=== PATIENT | female | born 1940 | race Caucasian/White ===

== ENCOUNTER 2018-04-15 16:54 | Inpatient (IN) | payer OTHER ==
[2018-04-15] MEDS ORDERED: ACETAMINOPHEN 500 MG TABLET (FP) PO ONE (18:40)
--- NOTE | 2018-04-15 18:41 | PDOC ---
History of Present Illness - General Chief Complaint: Wound Stated Complaint: WOUND Time Seen by Provider: 04/15/18 17:42 History Source: Patient Exam Limitations: No Limitations - History of Present Illness Initial Comments: 04/15/18 18:34 Patient came to emergency department with complaints of concerns about recurrent swelling to her left leg. Has suffered from what seems to be venous stasis ulcers and peripheral vascular disease that seems chronic and has been cared for by Dr. Zaman in the past. States was concerned because she noted some "insects/worms" to the wounds that someone told her may be maggots. Patient cleans the wounds herself with soap and water but states her left leg has progressively worsen swelling. Denies fever, denies purulent drainage, states is primarily a serous fluid, and is not exquisitely painful although is aching. States that it swells more becomes more painful. Has taken no medication for relief of same. Has not discussed this with Dr. Zaman and she has not seen him for same since December. Severity: Yes: moderate, severe Location: reports: extremities (RIGHT LOWER EXT) Associated Symptoms: reports: blisters, change in skin texture, edema. denies: fever Past History - Travel Traveled outside of the country in the last 30 days: No Close contact w/someone who was outside of country & ill: No - Past Medical History Allergies/Adverse Reactions: Allergies Allergy/AdvReac Type Severity Reaction Status Date / Time Penicillins Allergy Unknown Verified 04/16/18 01:15 Home Medications: Ambulatory Orders Fluticasone/Salmeterol [Advair 250-50 Diskus] 1 puff IH DAILY 04/15/18 Levothyroxine [Synthroid -] 88 mcg PO DAILY 04/15/18 Losartan Potassium 25 mg PO DAILY 04/15/18 Metoprolol Succinate 25 mg PO DAILY 04/15/18 Potassium Chloride 20 meq PO DAILY 04/15/18 Famotidine [Pepcid] 20 mg PO 04/17/18 Cancer: Yes (breast) COPD: No Hypercholesterolemia: No - Suicide/Smoking/Psychosocial Hx Smoking History: Never smoked Review of Systems - Review of Systems Able to Perform ROS?: Yes Is the patient limited Barbadian proficient: Yes Constitutional: Yes: Symptoms Reported, See HPI, Malaise. No: Fever HEENTM: Yes: See HPI. No: Symptoms Reported Respiratory: Yes: See HPI, Shortness of Breath. No: Symptoms reported, Cough Musculoskeletal: Yes: Symptoms Reported, Joint Pain, Joint Swelling, Muscle Weakness Integumentary: Yes: Symptoms Reported, See HPI, Erythema, Lesions, Other (WITH WEEPING ) All Other Systems: Reviewed and Negative *Physical Exam - Vital Signs Last Vital Signs Temp Pulse Resp BP Pulse Ox 98.9 F 112 H 20 143/91 99 04/15/18 17:05 04/15/18 17:05 04/15/18 17:05 04/15/18 17:05 04/15/18 17:05 - Physical Exam General Appearance: Yes: Nourished, Appropriately Dressed, Apparent Distress, Moderate Distress HEENT: positive: EOMI, RICO, Normal ENT Inspection, Normal Voice, TMs Normal, Pharynx Normal Neck: positive: Supple. negative: Tender Respiratory/Chest: positive: Lungs Clear, Normal Breath Sounds Cardiovascular: positive: Regular Rhythm Musculoskeletal: positive: Decreased Range of Motion. negative: Normal Inspection, CVA Tenderness Extremity: positive: Other (left lower extremity from above the knee with severe edema, erythema, and ulcerations with weeping serous drainage and multiple areas . Pulses are palpable but capillary refill is sluggish. Left calf is twice the size his right calf however both sides have peripheral edema and venous stasis changes.). negative: Normal Capillary Refill, Normal Inspection, Normal Range of Motion Integumentary: positive: Erythema. 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 We will obtain labs and prepare for admission, obtain US of bilateral extremities. *DC/Admit/Observation/Transfer Diagnosis at time of Disposition: Cellulitis, UTI (urinary tract infection) - Discharge Dispostion Condition at time of disposition: Stable - Referrals - Patient Instructions - Post Discharge Activity
[2018-04-15 18:57] LABS: BASO % 0.6 % (0-2.0); EOS % 1.4 % (0-4.5); HEMATOCRIT 34.4 % (32.4-45.2); HEMOGLOBIN 11.3 GM/dL (10.7-15.3); LYMPH % 26.2 % (8-40); MCH 30.6 pg (25.7-33.7); MEAN CELL VOLUME 92.8 fl (80-96); MEAN PLT VOLUME 6.5 fl (7.5-11.1); MONO % 11.4 % (3.8-10.2); NEUT % 60.4 % (42.8-82.8); PLATELET COUNT 344 K/MM3 (134-434); RDW 14.4 % (11.6-15.6); WHITE BLOOD COUNT 4.6 K/mm3 (4.0-10.0)
[2018-04-15] MEDS ORDERED: CLINDAMYCIN 600MG PREMIX IVPB 600 MG/50 ML BAG IVPB ONE ×2 (18:57→18:58)
[2018-04-15] MEDS ORDERED: ACETAMINOPHEN INJECTION 100 ML IVPB ONE (18:58)
[2018-04-15 19:19] LABS: ALBUMIN 3.2 g/dl (3.4-5.0); ANION GAP 9 (8-16); BLOOD UREA NITROGEN 5 mg/dL (7-18); CALCIUM 8.8 mg/dL (8.5-10.1); CHLORIDE 101 mmol/L (98-107); CO2 28 mmol/L (21-32); CREATININE 0.7 mg/dL (0.55-1.02); GLUCOSE,RANDOM 92 mg/dL (74-106); SGPT/ALT 22 U/L (12-78); SODIUM 138 mmol/L (136-145)
[2018-04-15 19:21] LABS: ALK PHOS 87 U/L (45-117); BILIRUBIN,TOTAL 0.5 mg/dL (0.2-1.0); POTASSIUM 3.9 mmol/L (3.5-5.1); SGOT/AST 38 U/L (15-37); TOT PROT 6.7 g/dl (6.4-8.2)
[2018-04-15] MEDS ORDERED: ACETAMINOPHEN 325 MG TABLET (FP) ONE (19:21)
--- NOTE | 2018-04-15 19:22 | PDOC ---
*Physical Exam - Vital Signs Last Vital Signs Temp Pulse Resp BP Pulse Ox 98.9 F 112 H 20 143/91 99 04/15/18 17:05 04/15/18 17:05 04/15/18 17:05 04/15/18 17:05 04/15/18 17:05 ED Treatment Course - LABORATORY CBC & Chemistry Diagram: 04/15/18 21:10 04/15/18 21:10 - ADDITIONAL ORDERS Additional order review: 04/15/18 16:44 RBC 3.70 MCV 92.8 MCHC 33.0 RDW 14.4 MPV 6.5 L Neutrophils % 60.4 Lymphocytes % 26.2 Monocytes % 11.4 H Eosinophils % 1.4 Basophils % 0.6 Medical Decision Making - Medical Decision Making 04/15/18 19:21 Patient was endorsed by GALA Maciel to follow labs, ultrasound and admit the patient for cellulitis. Laboratory Tests 04/15/18 04/15/18 04/15/18 16:44 16:44 16:44 WBC 4.6 Hgb 11.3 Hct 34.4 Plt Count 344 Sodium 138 Potassium 3.9 Chloride 101 Carbon Dioxide 28 Anion Gap 9 BUN 5 L Creatinine 0.7 Lactic Acid 1.0 B-Natriuretic Peptide Urine Color Urine Appearance Urine pH Ur Specific [place] Urine Protein Urine Glucose (UA) Urine Ketones Urine Blood Urine Nitrite Urine Bilirubin Urine Urobilinogen Ur Leukocyte Esterase Urine WBC (Auto) Urine RBC (Auto) Ur Epithelial Cells Urine Bacteria Hyaline Casts Urine Mucus 04/15/18 04/15/18 18:55 20:00 WBC Hgb Hct Plt Count Sodium Potassium Chloride Carbon Dioxide Anion Gap BUN Creatinine Lactic Acid B-Natriuretic Peptide 110.09 Urine Color Ltyellow Urine Appearance Slcloudy Urine pH 8.0 Ur Specific [place] 1.009 Urine Protein Negative Urine Glucose (UA) Negative Urine Ketones Trace H Urine Blood 1+ H Urine Nitrite Negative Urine Bilirubin Negative Urine Urobilinogen Negative Ur Leukocyte Esterase 3+ H Urine WBC (Auto) 67 Urine RBC (Auto) 6 Ur Epithelial Cells Rare Urine Bacteria Rare Hyaline Casts 5 Urine Mucus Rare Noted to have a UTI given Macrobid. Patient was already given clindamycin however will not cover the urine 04/15/18 23:47 Patient Full Name: SADI DAVIS Patient Accession No: [id number] Patient : [id number] Reason for Exam: pvd with stasis ulcers Referring Physician: AUBREY SANZ Patient Name: SUSAN AVITIA THIS IS A PRELIMINARY REPORT FROM [facility] DATE OF SERVICE: 2018-04-15 22:14:18 IMAGES: 72 EXAM: DUPLEX VASCULAR US-2 LEGS HISTORY: Stasis ulcers COMPARISON: None. FINDINGS: Negative for right or left lower extremity deep venous thrombosis. THIS DOCUMENT HAS BEEN ELECTRONICALLY SIGNED Kota Perez MD 04/15/2018 23:21 MC Aquino Please call [facility] [phone] ([phone]) with questions. INTERPRETING RADIOLOGIST: Kota Perez MD Electronically Signed: Apr 15, 2018 11:22PM EDT 04/15/18 23:49 CXR neg *DC/Admit/Observation/Transfer Diagnosis at time of Disposition: Cellulitis Qualifiers: Site of cellulitis: extremity Site of cellulitis of extremity: lower extremity Laterality: left Qualified Code(s): L03.116 - Cellulitis of left lower limb UTI (urinary tract infection) Qualifiers: Urinary tract infection type: site unspecified Hematuria presence: without hematuria Qualified Code(s): N39.0 - Urinary tract infection, site not specified - Discharge Dispostion Condition at time of disposition: Stable Decision to Admit order: Yes - Referrals Referrals: Mack Almeida MD [Primary Care Provider] - - Patient Instructions - Post Discharge Activity
[2018-04-15 20:08] LABS: URINE APPEARANCE SLCLOUDY; URINE BILIRUBIN NEGATIVE (<2.0 mg/dL); URINE BLOOD 1+ (NEGATIVE); URINE COLOR LTYELLOW; URINE GLUCOSE (UA) NEGATIVE (NEGATIVE); URINE KETONE TRACE (NEGATIVE); URINE NITRITE NEGATIVE (NEGATIVE); URINE PROTEIN NEGATIVE (NEGATIVE); URINE UROBILINOGEN NEGATIVE mg/dL (0.2-1.0)
[2018-04-15 20:11] LABS: URINE LEUK ESTERASE 3+ (NEGATIVE)
[2018-04-15 20:13] LABS: EPI CELLS RARE /HPF (FEW); URINE BACTERIA RARE /hpf (NONE SEEN); URINE HYALINE CAST 5 /lpf; URINE MUCUS RARE
[2018-04-15 21:28] LABS: BASO % 0.5 % (0-2.0); EOS % 1.1 % (0-4.5); HEMATOCRIT 34.6 % (32.4-45.2); HEMOGLOBIN 11.5 GM/dL (10.7-15.3); LYMPH % 20.3 % (8-40); MCH 30.7 pg (25.7-33.7); MCHC 33.3 g/dl (32.0-36.0); MEAN CELL VOLUME 92.4 fl (80-96); MEAN PLT VOLUME 6.2 fl (7.5-11.1); MONO % 10.8 % (3.8-10.2); NEUT % 67.3 % (42.8-82.8); PLATELET COUNT 346 K/MM3 (134-434); RBC 3.74 M/mm3 (3.60-5.2); RDW 13.7 % (11.6-15.6); WHITE BLOOD COUNT 4.9 K/mm3 (4.0-10.0)
[2018-04-15 22:08] LABS: ALBUMIN 3.2 g/dl (3.4-5.0); ALK PHOS 89 U/L (45-117); ANION GAP 8 (8-16); BILIRUBIN,TOTAL 0.5 mg/dL (0.2-1.0); BLOOD UREA NITROGEN 5 mg/dL (7-18); CALCIUM 8.6 mg/dL (8.5-10.1); CHLORIDE 103 mmol/L (98-107); CO2 28 mmol/L (21-32); CREATININE 0.7 mg/dL (0.55-1.02); GLUCOSE,RANDOM 97 mg/dL (74-106); POTASSIUM 3.5 mmol/L (3.5-5.1); SGOT/AST 30 U/L (15-37); SGPT/ALT 22 U/L (12-78); SODIUM 139 mmol/L (136-145); TOT PROT 6.7 g/dl (6.4-8.2)
[2018-04-15] MEDS ORDERED: NITROFURANTOIN MACROCRYSTAL 50 MG CAPSULE (FP) PO SCH (22:30)
[2018-04-15] MEDS ORDERED: NITROFURANTOIN MACROCRYSTAL 50 MG CAPSULE (FP) PO ONE (22:30)
[2018-04-16] MEDS ORDERED: ACETAMINOPHEN 325 MG TABLET (FP) PO PRN (00:40)
--- NOTE | 2018-04-16 00:43 | HP ---
CHIEF COMPLAINT: L Leg pain PCP: Dr. Almeida HISTORY OF PRESENT ILLNESS: 78yo F with memory deficits, recurrent cellulitis with unknown bacteria, HTN , Asthma, and hypothyroidism presents to the hospital with pain in her L lower extremity. Pt reports previously having cellulitis before, however she does not remember which antibiotics and bacteria she had. Pt reports seeing Dr. Almeida due to the venous stasis changes on her legs alongside of what seems to be peripheral vascular disease. Pt reports cleaning her leg scaling with tap water and soap and has been doing this regularly for a while. Pt endorses that this visit her L leg is markedly larger than her R and noticed her pant leg becoming more taut day-to-day. She denies fever/chills, diarrhea, constipation, abdominal pain, chest pain/discomfort, palpitations. Of note: Pt endorses polyuria with almost being incontinent due to the frequency at which she urinated. Denies any overt dysuria. ER course was notable for: (1) Cleocin 10mg/kg IV x1 (2) UA with Leuk est 3+, WBC 67; given Macrobid x1 (3) PAST MEDICAL HISTORY: HTN Asthma Hypothyroidism PAST SURGICAL HISTORY: Social History: Smoking: Never Alcohol: None Drugs: None Family History: Allergies No Known Allergies Allergy (Verified 04/15/18 17:10) HOME MEDICATIONS: Home Medications Medication Instructions Recorded Fluticasone/Salmeterol [Advair 1 puff IH DAILY 04/15/18 250-50 Diskus] Levothyroxine [Synthroid -] 25 mcg PO DAILY 04/15/18 Losartan Potassium 25 mg PO DAILY 04/15/18 Metoprolol Succinate 25 mg PO DAILY 04/15/18 Potassium Chloride 20 meq PO DAILY 04/15/18 REVIEW OF SYSTEMS CONSTITUTIONAL: Absent: fever, chills, diaphoresis, generalized weakness, malaise, loss of appetite, weight change HEENT: Absent: rhinorrhea, nasal congestion, throat pain, throat swelling, difficulty swallowing, mouth swelling, ear pain, eye pain, visual changes CARDIOVASCULAR: Absent: chest pain, syncope, palpitations, irregular heart rate, lightheadedness , peripheral edema RESPIRATORY: Absent: cough, shortness of breath, dyspnea with exertion, orthopnea, wheezing, stridor, hemoptysis GASTROINTESTINAL: Absent: abdominal pain, abdominal distension, nausea, vomiting, diarrhea, constipation, melena, hematochezia GENITOURINARY: Absent: dysuria, frequency, urgency, hesitancy, hematuria, flank pain, genital pain MUSCULOSKELETAL: Absent: myalgia, arthralgia, joint swelling, back pain, neck pain SKIN: Absent: rash, itching, pallor HEMATOLOGIC/IMMUNOLOGIC: Absent: easy bleeding, easy bruising, lymphadenopathy, frequent infections ENDOCRINE: Absent: unexplained weight gain, unexplained weight loss, heat intolerance, cold intolerance NEUROLOGIC: Absent: headache, focal weakness or paresthesias, dizziness, unsteady gait, seizure, mental status changes, bladder or bowel incontinence PSYCHIATRIC: Absent: anxiety, depression, suicidal or homicidal ideation, hallucinations. PHYSICAL EXAMINATION Vital Signs - 24 hr 04/15/18 17:05 Temperature 98.9 F Pulse Rate 112 H Respiratory 20 Rate Blood Pressure 143/91 O2 Sat by Pulse 99 Oximetry (%) GENERAL: NAD, Awake, alert, and fully oriented, frail-appearing HEENT: EOMI, ADAM, dry MM NECK: No JVD LUNGS: CTA bilaterally. No wheezes, and no crackles. No accessory muscle use. HEART: Tachycardic with regular rhythm, normal S1 and S2 without murmur ABDOMEN: Soft, nontender, not distended, normoactive bowel sounds, no guarding, No hepatomegaly. no suprapubic tenderness MUSCULOSKELETAL: No CVA tenderness. EXTREMITIES: 2+ DP pulses, hot, L > R lower ext edema. No posterior calf tenderness PSYCHIATRIC: Pleasant. Cooperative. Good eye contact. Appropriate mood and affect. SKIN: L lower extremity hot and painful to palpation. no fluctuance appreciated underneath skin. Pt has posterior LLext open blistered area and two ulcerations on L lateral skin Laboratory Results - last 24 hr 04/15/18 04/15/18 04/15/18 16:44 16:44 16:44 WBC 4.6 RBC 3.70 Hgb 11.3 Hct 34.4 MCV 92.8 MCH 30.6 MCHC 33.0 RDW 14.4 Plt Count 344 MPV 6.5 L Neutrophils % 60.4 Lymphocytes % 26.2 Monocytes % 11.4 H Eosinophils % 1.4 Basophils % 0.6 Nucleated RBC % 0 Sodium 138 Potassium 3.9 Chloride 101 Carbon Dioxide 28 Anion Gap 9 BUN 5 L Creatinine 0.7 Creat Clearance w eGFR > 60 Random Glucose 92 Lactic Acid 1.0 Calcium 8.8 Total Bilirubin 0.5 AST 38 H ALT 22 Alkaline Phosphatase 87 B-Natriuretic Peptide Total Protein 6.7 Albumin 3.2 L Urine Color Urine Appearance Urine pH Ur Specific [place] Urine Protein Urine Glucose (UA) Urine Ketones Urine Blood Urine Nitrite Urine Bilirubin Urine Urobilinogen Ur Leukocyte Esterase Urine WBC (Auto) Urine RBC (Auto) Ur Epithelial Cells Urine Bacteria Hyaline Casts Urine Mucus 04/15/18 04/15/18 04/15/18 18:55 20:00 21:10 WBC RBC Hgb Hct MCV MCH MCHC RDW Plt Count MPV Neutrophils % Lymphocytes % Monocytes % Eosinophils % Basophils % Nucleated RBC % Sodium 139 Potassium 3.5 Chloride 103 Carbon Dioxide 28 Anion Gap 8 BUN 5 L Creatinine 0.7 Creat Clearance w eGFR > 60 Random Glucose 97 Lactic Acid Calcium 8.6 Total Bilirubin 0.5 AST 30 ALT 22 Alkaline Phosphatase 89 B-Natriuretic Peptide 110.09 Total Protein 6.7 Albumin 3.2 L Urine Color Ltyellow Urine Appearance Slcloudy Urine pH 8.0 Ur Specific [place] 1.009 Urine Protein Negative Urine Glucose (UA) Negative Urine Ketones Trace H Urine Blood 1+ H Urine Nitrite Negative Urine Bilirubin Negative Urine Urobilinogen Negative Ur Leukocyte Esterase 3+ H Urine WBC (Auto) 67 Urine RBC (Auto) 6 Ur Epithelial Cells Rare Urine Bacteria Rare Hyaline Casts 5 Urine Mucus Rare 04/15/18 04/15/18 21:10 21:10 WBC 4.9 RBC 3.74 Hgb 11.5 Hct 34.6 MCV 92.4 MCH 30.7 MCHC 33.3 RDW 13.7 Plt Count 346 MPV 6.2 L Neutrophils % 67.3 Lymphocytes % 20.3 D Monocytes % 10.8 H Eosinophils % 1.1 Basophils % 0.5 Nucleated RBC % 0 Sodium Potassium Chloride Carbon Dioxide Anion Gap BUN Creatinine Creat Clearance w eGFR Random Glucose Lactic Acid 1.0 Calcium Total Bilirubin AST ALT Alkaline Phosphatase B-Natriuretic Peptide Total Protein Albumin Urine Color Urine Appearance Urine pH Ur Specific [place] Urine Protein Urine Glucose (UA) Urine Ketones Urine Blood Urine Nitrite Urine Bilirubin Urine Urobilinogen Ur Leukocyte Esterase Urine WBC (Auto) Urine RBC (Auto) Ur Epithelial Cells Urine Bacteria Hyaline Casts Urine Mucus ASSESSMENT/PLAN: 1) LLE Cellulitis --Blood cultures pending; wound culture would most likely yield normal skin apryl vs. contaminent and may not be optimal with her supericial areas --Vancomycin 1g q12h --Aztreonam 2g IV q8hs --Penicillin allergic w/o known reaction --Vascular consulted --ID consulted --Doppler r/o DVT 2) UTI --symptomatic with polyuria --Would most likely be treated by cellulitis antibiotics --urine culture; UA noted 3) HTN --Continue home norvasc 5mg po and losartan 4) Hypothyroidism --Continued home synthroid FEN: Fluids: gentle hydration Electrolyte abnormalities: none Nutrition: sodium controlled diet PPX: DVT - Heparin SQ Dispo: Admit M/S Case discussed with Dr. Navarro Poe, DO - IM PGY-1 Visit type - Emergency Visit Emergency Visit: Yes ED Registration Date: 04/16/18 Care time: The patient presented to the Emergency Department on the above date and was hospitalized for further evaluation of their emergent condition. - New Patient This patient is new to me today: Yes Date on this admission: 04/16/18 - Critical Care Critical Care patient: No Hospitalist Screening - Colonoscopy Questionnaire Colonoscopy Questionnaire: Colonoscopy Questionnaire - Patient: 50 - 75 years old and never had a screening colonoscopy: Unknown History of colon or rectal polyps, or CA: Unknown History of IBD, Crohn's disease or UC: Unknown History of abdominal radiation therapy as a child: Unknown - Relative: 1 with colon or rectal CA, or polyps at age 60 or younger: Unknown Colon or rectal CA diagnosed at age 45 or younger: Unknown Multiple relatives with colon or rectal CA: Unknown - Outcome: Screening Result: Negative Screen
[2018-04-16] MEDS ORDERED: NITROFURANTOIN MACROCRYSTAL 50 MG CAPSULE (FP) ONE (02:40)
[2018-04-16] MEDS ORDERED: AZTREONAM 2 GM in DEXTROSE 5%-WATER 100 ML IVPB ONE (03:30)
[2018-04-16] MEDS ORDERED: CLINDAMYCIN 300 MG PREMIX IVPB 300 MG/50 ML BAG IVPB SCH (03:30)
[2018-04-16] MEDS ORDERED: VANCOMYCIN 1,000 MG in DEXTROSE 5%-WATER - 250 ML IVPB ONE ×2 (03:30→18:00)
[2018-04-16] MEDS ORDERED: VANCOMYCIN 1 GM PREMIX - 1 GM/200 ML BAG IVPB ONE (03:31)
[2018-04-16 04:42] VITALS: BMI 20.5
--- NOTE | 2018-04-16 05:12 | PN ---
Teaching Attending Note Name of Resident: Darwin Poe ATTENDING PHYSICIAN STATEMENT I saw and evaluated the patient. Chart, data reviewed. I reviewed the resident's note and discussed the case with the resident. I agree with the resident's findings and plan as documented. SUBJECTIVE: 78yo F with dementia HTN, asthma, PVD, and hypothyroidism presents c/o pain and redness in left lower extremity. Denied any history of trauma to leg. No fevers. Hx of chronic ulcers on LLE. History of celullitis on that leg. Pt follows with Dr. Almeida for PVD. Patient received clindamycin in ER. Unknown penicillin allergy. OBJECTIVE: Last Vital Signs Temp Pulse Resp BP Pulse Ox 98 F 84 18 138/79 97 04/16/18 04:35 04/16/18 04:35 04/16/18 04:35 04/16/18 04:35 04/16/18 04:46 general-nad, nontoxic appearing, frail heent-at, nc, moist oral mucosa cv-s1+s2+rrr chest -cta b/l abdomen-soft, nt, bs+ ext- left leg erythematous, warm to touch, superficial ulcers seen b/l venous stasis changes Abnormal Lab Results 04/15/18 04/15/18 04/15/18 16:44 16:44 20:00 MPV 6.5 L Monocytes % 11.4 H BUN 5 L AST 38 H Albumin 3.2 L Urine Ketones Trace H Urine Blood 1+ H Ur Leukocyte Esterase 3+ H 04/15/18 04/15/18 21:10 21:10 MPV 6.2 L Monocytes % 10.8 H BUN 5 L AST Albumin 3.2 L Urine Ketones Urine Blood Ur Leukocyte Esterase lower ext duplex u/s- neg for dvt b/l ASSESSMENT AND PLAN: #78yo woman with underlying PVD w/ left leg cellulitis. DVT was ruled out. Stable for admission to regular medical floor. -admit to med/surg -blood cultures x2 -vancomycin 1g IV q12hrs -aztreonam 2g IV q8hrs -vascular consult -ID consult -keep legs elevated heparin sc for dvt ppx
[2018-04-16] MEDS: HEPARIN NA (PORCINE) 5,000 UNITS/ML 1ML VIAL SQ SCH ×4 (06:09→22:03)
[2018-04-16] MEDS ORDERED: NITROFURANTOIN MACROCRYSTAL 50 MG CAPSULE (FP) PO SCH (10:00)
[2018-04-16] MEDS: LOSARTAN POTASSIUM 25 MG TABLET PO SCH (11:14)
[2018-04-16] MEDS: metoPROLOL SUCCINATE 25 MG TAB.SR.24H (FP) PO SCH (11:14)
[2018-04-16] MEDS: LEVOTHYROXINE NA 25 MCG TABLET (FP) PO SCH (13:09)
[2018-04-16] MEDS ORDERED: AZTREONAM 1 GM VIAL (RESTRICTED TO ID) IVPB ONE (14:02)
--- NOTE | 2018-04-16 14:09 | PN ---
Progress Note (short form) - Note Progress Note: Subjective: No fever or chills, has no pain in Extremities. no SOB . no CP Objective: Vital Signs: Last Vital Signs Temp Pulse Resp BP Pulse Ox 98.2 F 92 H 18 112/69 97 04/16/18 11:16 04/16/18 11:16 04/16/18 11:16 04/16/18 11:16 04/16/18 04:46 Laboratory Results - last 24 hr 04/15/18 04/15/18 04/15/18 16:44 16:44 16:44 WBC 4.6 RBC 3.70 Hgb 11.3 Hct 34.4 MCV 92.8 MCH 30.6 MCHC 33.0 RDW 14.4 Plt Count 344 MPV 6.5 L Neutrophils % 60.4 Lymphocytes % 26.2 Monocytes % 11.4 H Eosinophils % 1.4 Basophils % 0.6 Nucleated RBC % 0 Sodium 138 Potassium 3.9 Chloride 101 Carbon Dioxide 28 Anion Gap 9 BUN 5 L Creatinine 0.7 Creat Clearance w eGFR > 60 Random Glucose 92 Lactic Acid 1.0 Calcium 8.8 Total Bilirubin 0.5 AST 38 H ALT 22 Alkaline Phosphatase 87 B-Natriuretic Peptide Total Protein 6.7 Albumin 3.2 L Urine Color Urine Appearance Urine pH Ur Specific [place] Urine Protein Urine Glucose (UA) Urine Ketones Urine Blood Urine Nitrite Urine Bilirubin Urine Urobilinogen Ur Leukocyte Esterase Urine WBC (Auto) Urine RBC (Auto) Ur Epithelial Cells Urine Bacteria Hyaline Casts Urine Mucus 04/15/18 04/15/18 04/15/18 18:55 20:00 21:10 WBC RBC Hgb Hct MCV MCH MCHC RDW Plt Count MPV Neutrophils % Lymphocytes % Monocytes % Eosinophils % Basophils % Nucleated RBC % Sodium 139 Potassium 3.5 Chloride 103 Carbon Dioxide 28 Anion Gap 8 BUN 5 L Creatinine 0.7 Creat Clearance w eGFR > 60 Random Glucose 97 Lactic Acid Calcium 8.6 Total Bilirubin 0.5 AST 30 ALT 22 Alkaline Phosphatase 89 B-Natriuretic Peptide 110.09 Total Protein 6.7 Albumin 3.2 L Urine Color Ltyellow Urine Appearance Slcloudy Urine pH 8.0 Ur Specific [place] 1.009 Urine Protein Negative Urine Glucose (UA) Negative Urine Ketones Trace H Urine Blood 1+ H Urine Nitrite Negative Urine Bilirubin Negative Urine Urobilinogen Negative Ur Leukocyte Esterase 3+ H Urine WBC (Auto) 67 Urine RBC (Auto) 6 Ur Epithelial Cells Rare Urine Bacteria Rare Hyaline Casts 5 Urine Mucus Rare 04/15/18 04/15/18 21:10 21:10 WBC 4.9 RBC 3.74 Hgb 11.5 Hct 34.6 MCV 92.4 MCH 30.7 MCHC 33.3 RDW 13.7 Plt Count 346 MPV 6.2 L Neutrophils % 67.3 Lymphocytes % 20.3 D Monocytes % 10.8 H Eosinophils % 1.1 Basophils % 0.5 Nucleated RBC % 0 Sodium Potassium Chloride Carbon Dioxide Anion Gap BUN Creatinine Creat Clearance w eGFR Random Glucose Lactic Acid 1.0 Calcium Total Bilirubin AST ALT Alkaline Phosphatase B-Natriuretic Peptide Total Protein Albumin Urine Color Urine Appearance Urine pH Ur Specific [place] Urine Protein Urine Glucose (UA) Urine Ketones Urine Blood Urine Nitrite Urine Bilirubin Urine Urobilinogen Ur Leukocyte Esterase Urine WBC (Auto) Urine RBC (Auto) Ur Epithelial Cells Urine Bacteria Hyaline Casts Urine Mucus Physical Exam: NAD , MMM Cv : RRR Lungs: CATB ABd: soft, NT, ND , NLBS Ext: RLE with slight erythema , nl warmth and scaly thickened skin. L leg with erythema , increased warmth and edema. Ulcers and purulent drainage seen . DP 2 + b/l Assessment/Plan: 78 y/o lady with h/o Asthma, PVD, chronci ulcers, hypothyroidism and HTN, ? dementia , who presented with worsening LLE wound . 1-LLE purulent cellulites : - allergic to pCN - given vanco and aztreonam last night - cont same ABx pending ID eval - send wound cx - no systemic signs . 2+ DP pulses 2- pyuria : no urinary signs . unlikely UTI - was started on macrobid last night - dc microbid - any way on abx for celullulites 3- h/o HTN: cont losartan and toprol 5- Asthma : stable . - resume home advair 6- DVT PX HLOC PT eval Visit type - Emergency Visit Emergency Visit: Yes ED Registration Date: 04/16/18 Care time: The patient presented to the Emergency Department on the above date and was hospitalized for further evaluation of their emergent condition. - New Patient This patient is new to me today: Yes Date on this admission: 04/16/18 - Critical Care Critical Care patient: No
--- NOTE | 2018-04-16 15:48 | PN ---
Progress Note (short form) - Note Progress Note: ID Consult dictated Cellulitis L LE Chronic venous stasis dermatitis/ ulceration ?PCN allergy Pt denies Await c/s Empiric cefazolin Local wound care
[2018-04-16] MEDS ORDERED: AZTREONAM 2 GM in DEXTROSE 5%-WATER - 100 ML IVPB ONE (16:00)
[2018-04-16] MEDS ORDERED: ceFAZolin SODIUM 1 GM VIAL ONE (16:15)
[2018-04-16] MEDS ORDERED: DEXTROSE 5%-WATER - 50 ML IVPB ONE (16:15)
[2018-04-16] MEDS: CEFAZOLIN 1 GM in DEXTROSE 5%-WATER - 50 ML IVPB SCH ×2 (16:18→17:57)
--- NOTE | 2018-04-16 17:46 | CONS ---
DATE OF CONSULTATION: 04/16/2018 The patient is a 78-year-old female evaluated for cellulitis of the left lower extremity. She has a history of chronic venous stasis, dermatitis, and ulceration. She had been under the care of Dr. Almeida in the recent past. She now presents with worsening left lower extremity swelling, pain, and erythema. She noted some serous weepage from ulceration present along the lateral aspect of the left leg. She did not take any antibiotics prior to admission. She denies any fever or chills. The patient lives at home. She has had no recent hospitalizations. No history of MRSA. Past medical history positive for chronic venous stasis, dermatitis, hypertension, asthma, hypothyroidism. Allergies to PENICILLIN. Patient denies history of PENICILLIN allergy. MEDICATIONS: Advair, metoprolol, losartan, Synthroid. SOCIAL HISTORY: Lives at home. Nonsmoker. SYSTEMS REVIEW: Neurologic: No loss of consciousness, seizure activity, focal weakness. Cardiac: Negative chest pain or palpitations. Respiratory: Negative cough or sputum production. Gastrointestinal: Negative vomiting or diarrhea. Genitourinary: Negative for urinary tract infection. LABORATORY DATA: White count 4.9, hematocrit 34.6, platelet count 346. BUN 5, creatinine 0.7. Liver enzymes normal. Chest x-ray negative for acute infiltrate. Doppler exam: Negative DVT. PHYSICAL EXAMINATION: General: She is awake and alert, in no acute distress. Vital Signs: Temperature 97.9. Blood pressure 112/60. Pulse 82, regular. Respirations 20 per minute. Eyes: Sclerae anicteric. Heart Sounds: S1, S2. Lungs: Clear. Abdomen: Soft. Nontender. Extremities: Examination of the lower extremities: Bilateral lower extremity chronic venous stasis dermatitis. Examination of the left lower extremity, there is swelling of the leg from below the knee to the foot. It is erythematous and warm. There is a superficial ulceration present along the lateral aspect of the leg with some serous drainage. No foul odor. Right lower extremity with less swelling and erythema, chronic venous stasis changes. No ulcerations. IMPRESSION: 1. Cellulitis of the left lower extremity. 2. Chronic venous stasis dermatitis/ulceration. 3. Questionable PENICILLIN allergy. Await culture results. Patient denies history of PENICILLIN allergy. No recent hospitalizations or history of MRSA. Will give cefazolin 1 g IV piggyback every 8 hours in conjunction with local wound care, elevation, analgesics, vascular surgery evaluation. Will follow. Thank you for the kind referral. ELIZABETH TOLEDO M.D. TREVOR/[id number]
[2018-04-16] MEDS ORDERED: PT OWN MED DRAWER 7, Y5N ONE (20:31)
[2018-04-16] MEDS: FLUTICASONE/SALMETEROL 100 MCG/50 MCG DISKUS IH SCH (22:03)
--- NOTE | 2018-04-16 22:10 | EKG ---
Test Reason : Blood Pressure : / mmHG Vent. Rate : 097 BPM Atrial Rate : 097 BPM P-R Int : 140 ms QRS Dur : 078 ms QT Int : 370 ms P-R-T Axes : 067 046 043 degrees QTc Int : 469 ms NORMAL SINUS RHYTHM NORMAL ECG NO PREVIOUS ECGS AVAILABLE Confirmed by KAL LUNDBERG MD ([id number]) on 04/16/2018 10:09:37 PM Referred By: Confirmed By:KAL LUNDBERG MD
[2018-04-17] MEDS ORDERED: DEXTROSE 5%-WATER - 50 ML IVPB ONE ×3 (02:20→17:05)
[2018-04-17] MEDS ORDERED: ceFAZolin SODIUM 1 GM VIAL ONE ×3 (02:20→17:05)
[2018-04-17] MEDS: CEFAZOLIN 1 GM in DEXTROSE 5%-WATER - 50 ML IVPB SCH ×3 (02:33→17:15)
[2018-04-17] MEDS: HEPARIN NA (PORCINE) 5,000 UNITS/ML 1ML VIAL SQ SCH ×3 (05:52→21:13)
[2018-04-17] MEDS: LEVOTHYROXINE NA 25 MCG TABLET (FP) PO SCH (06:34)
--- NOTE | 2018-04-17 08:28 | PN ---
Progress Note, Physician Chief Complaint: ID Cefazolin day 1 In good spiritis - Current Medication List Current Medications: Active Medications Acetaminophen (Tylenol -) 650 mg PO Q6H PRN PRN Reason: FEVER Heparin Sodium (Porcine) (Heparin -) 5,000 unit SQ TID [facility] Last Admin: 04/17/18 05:52 Dose: 5,000 unit Cefazolin Sodium 1 gm/ (Dextrose) 50 mls @ 100 mls/hr IVPB Q8H-IV [facility] Last Admin: 04/17/18 02:33 Dose: 100 mls/hr Levothyroxine Sodium (Synthroid -) 25 mcg PO DAILY@0700 [facility] Last Admin: 04/17/18 06:34 Dose: 25 mcg Losartan Potassium (Cozaar -) 25 mg PO DAILY [facility] Last Admin: 04/16/18 11:14 Dose: 25 mg Metoprolol Succinate (Toprol Xl -) 25 mg PO DAILY [facility] Last Admin: 04/16/18 11:14 Dose: 25 mg Fluticasone/Salmeterol (Advair 100mcg/50mcg -) 1 puff IH BID [facility] Last Admin: 04/16/18 22:03 Dose: 1 puff - Objective Vital Signs: Vital Signs Temperature 98.1 F 04/17/18 05:00 Pulse Rate 80 04/17/18 05:00 Respiratory Rate 20 04/17/18 05:00 Blood Pressure 113/78 04/17/18 05:00 O2 Sat by Pulse Oximetry (%) 96 04/16/18 21:00 Extremities: Yes: Other (Marked swelling Left leg ulcerations) Labs: CBC, BMP 04/15/18 21:10 04/15/18 21:10 Assessment/Plan Microbiology 04/15/18 18:55 Blood - Peripheral Venous Blood Culture - Preliminary NO GROWTH OBTAINED AFTER 24 HOURS, INCUBATION TO CONTINUE FOR 4 DAYS. 04/15/18 16:44 Blood - Peripheral Venous Blood Culture - Preliminary NO GROWTH OBTAINED AFTER 24 HOURS, INCUBATION TO CONTINUE FOR 4 DAYS. Laboratory Tests 04/15/18 04/15/18 20:00 21:10 WBC 4.9 Hgb 11.5 Plt Count 346 Ur Leukocyte Esterase 3+ H Urine WBC (Auto) 67 Urine RBC (Auto) 6 Assessment Stasis dermatitis with cellulitis left Lower ext. Swelling superfical ulcers Incidental UTI Plan Continue Cefazolin as ordered Linda MANCERA
[2018-04-17] MEDS: FLUTICASONE/SALMETEROL 100 MCG/50 MCG DISKUS IH SCH ×2 (09:59→21:13)
[2018-04-17] MEDS: metoPROLOL SUCCINATE 25 MG TAB.SR.24H (FP) PO SCH (09:59)
[2018-04-17] MEDS: LOSARTAN POTASSIUM 25 MG TABLET PO SCH (09:59)
--- NOTE | 2018-04-17 13:59 | PN ---
Physical Exam: SUBJECTIVE: Patient seen and examined at bedside. States that she has increased pain in her LLE upon movement, otherwise without further complaint. Denies MCCARTY, fever, chills, SOB, chest pain, or changes in urinary function. OBJECTIVE: Vital Signs Period Temp Pulse Resp BP Sys/[place] Pulse Ox Last 24 Hr 97.6 F-99 F 73-82 18-22 112-127/54-78 96-96 GENERAL: The patient is resting comfortably in bed. awake, alert, and fully oriented, in no acute distress. HEAD: Normal with no signs of trauma. EYES: PERRL, extraocular movements intact, sclera anicteric, conjunctiva clear. ENT: Ears normal, nares patent, moist mucous membranes. NECK: Trachea midline, supple. LUNGS: Breath sounds equal, clear to auscultation bilaterally, no wheezes, no crackles, no accessory muscle use. HEART: Regular rate and rhythm, S1, S2 without murmur, rub or gallop. ABDOMEN: Soft, nontender, nondistended, normoactive bowel sounds, no guarding. EXTREMITIES: 2+ pt pulses. +RLE: erythema, 2+ pitting edema, chronic changes, scaling. +LLE: with multiple ulcerations laterally, posteriorly. foul smelling with serosanguineous drainage, surrounding erythema. anterior ulceration - with scabbing NEUROLOGICAL: Cranial nerves II through XII grossly intact. +decreased ROM LLE d /t pain PSYCH: Normal mood, normal affect. SKIN: Warm, dry, normal turgor Active Medications Generic Name Dose Route Start Last Admin Trade Name Freq PRN Reason Stop Dose Admin Acetaminophen 650 mg 04/16/18 00:40 Tylenol - PO Q6H PRN FEVER Heparin Sodium (Porcine) 5,000 unit 04/16/18 06:00 04/17/18 13:08 Heparin - SQ 5,000 unit TID IDA Administration Cefazolin Sodium 1 gm/ 50 mls @ 100 mls/hr 04/16/18 16:00 04/17/18 09:59 Dextrose IVPB 100 mls/hr Q8H-IV IDA Administration Levothyroxine Sodium 25 mcg 04/16/18 10:00 04/17/18 06:34 Synthroid - PO 25 mcg DAILY@0700 IDA Administration Losartan Potassium 25 mg 04/16/18 10:00 04/17/18 09:59 Cozaar - PO 25 mg DAILY IDA Administration Metoprolol Succinate 25 mg 04/16/18 10:00 04/17/18 09:59 Toprol Xl - PO 25 mg DAILY IDA Administration Fluticasone/Salmeterol 1 puff 04/16/18 22:00 04/17/18 09:59 Advair 100mcg/50mcg - IH 1 puff BID IDA Administration Microbiology 04/15/18 18:55 Blood - Peripheral Venous Blood Culture - Preliminary NO GROWTH OBTAINED AFTER 24 HOURS, INCUBATION TO CONTINUE FOR 4 DAYS. 04/15/18 16:44 Blood - Peripheral Venous Blood Culture - Preliminary NO GROWTH OBTAINED AFTER 24 HOURS, INCUBATION TO CONTINUE FOR 4 DAY 04/15/18 12:43 Urine - Urine Clean Catch Urine Culture - Preliminary Non Lactose Fermenting Gnb Imaging 04/15/18: B/L duplex: (-) DVT 04/15/18: CXR: no acute pathology ASSESSMENT/PLAN: 78 y/o F with h/o asthma, PVD, chronic ulcers, hypothyroidism, HTN, ?dementia, who presented to the ED with LLE wound. #LLE purulent cellulitis -without sepsis; afebrile, without tachycardia, or white count -LLE ulcerations - +drainage, surrounding erythema -penicillin allergic -initially was on vanc, aztreonam -has been changed to cefazolin 1 gm q8h - Today is Day 1 -F/u blood cx: (-) 24hrs -wound cx - to be sent, however may be (-) as pt already on abx #asymptomatic pyuria -though ucx with non lactose fermenting gram - bacilli, no need to tx as pt asymptomatic -will continue to monitor #h/o HTN-controlled -Continue losartan 25mg PO qd -toprol 25mg PO qd #hypothyroidism -continue synthroid 88mcg PO qd - has been verified with patient as correct dose #asthma -currently not in exacerbation -continue advair 100mcg/50mcg - 1 puff IH BID #F/E/N -currently not on IVF -continue to follow lytes -regular diet #PPX DVT: Hep 5000 U SQ TID #Dispo continued monitoring on med-surg continue to follow blood cx Visit type - Emergency Visit Emergency Visit: No - New Patient This patient is new to me today: No - Critical Care Critical Care patient: No
--- NOTE | 2018-04-17 17:27 | PN ---
Teaching Attending Note Name of Resident: Divine Sin ATTENDING PHYSICIAN STATEMENT I saw and evaluated the patient. I reviewed the resident's note and discussed the case with the resident. I agree with the resident's findings and plan as documented. SUBJECTIVE: No fever or hcills. No abd pain. Legs feel much better to her OBJECTIVE: NAD , MMM Cv : RRR Lungs: CATB ABd: soft, NT, ND , NLBS Ext: RLE with slight erythema , nl warmth and scaly thickened skin. L leg with erythema , increased warmth and edema. Erythema has improved ocmpared to yesterday . Ulcers on L leg . DP 2+ b/l Assessment/Plan: 78 y/o lady with h/o Asthma, PVD, chronci ulcers, hypothyroidism and HTN, ? dementia , who presented with worsening LLE wound . 1- LLE purulent cellulites : Improved - Cont cefazoline - wound cx pending 2- Asymptomatic bacteruria . will not treat 3- H/o HTN: cont losartan and toprol 5- Asthma: stable. - advair 6- DVT PX HLOC PT eval
[2018-04-17] MEDS ORDERED: PT OWN MED DRAWER 7, Y5N ONE (20:10)
[2018-04-18] MEDS ORDERED: DEXTROSE 5%-WATER - 50 ML IVPB ONE ×3 (01:04→17:03)
[2018-04-18] MEDS ORDERED: ceFAZolin SODIUM 1 GM VIAL ONE ×3 (01:04→17:03)
[2018-04-18] MEDS: CEFAZOLIN 1 GM in DEXTROSE 5%-WATER - 50 ML IVPB SCH ×3 (01:46→17:09)
[2018-04-18] MEDS: HEPARIN NA (PORCINE) 5,000 UNITS/ML 1ML VIAL SQ SCH ×3 (06:20→21:06)
[2018-04-18] MEDS: LEVOTHYROXINE NA 88 MCG TABLET (FP) PO SCH (06:20)
[2018-04-18 07:28] LABS: BASO % 0.7 % (0-2.0); EOS % 3.1 % (0-4.5); HEMATOCRIT 29.7 % (32.4-45.2); HEMOGLOBIN 10.1 GM/dL (10.7-15.3); LYMPH % 32.4 % (8-40); MCH 31.2 pg (25.7-33.7); MEAN CELL VOLUME 91.9 fl (80-96); MEAN PLT VOLUME 6.3 fl (7.5-11.1); MONO % 12.1 % (3.8-10.2); NEUT % 51.7 % (42.8-82.8); PLATELET COUNT 267 K/MM3 (134-434); RBC 3.24 M/mm3 (3.60-5.2); RDW 14.2 % (11.6-15.6); WHITE BLOOD COUNT 3.4 K/mm3 (4.0-10.0)
[2018-04-18 08:37] LABS: ANION GAP 9 (8-16); BLOOD UREA NITROGEN 11 mg/dL (7-18); CALCIUM 7.9 mg/dL (8.5-10.1); CHLORIDE 107 mmol/L (98-107); CO2 25 mmol/L (21-32); CREATININE 0.5 mg/dL (0.55-1.02); GLUCOSE,RANDOM 91 mg/dL (74-106); MAGNESIUM 2.3 mg/dL (1.8-2.4); PHOSPHOROUS 3.2 mg/dL (2.5-4.9); POTASSIUM 3.4 mmol/L (3.5-5.1); SODIUM 141 mmol/L (136-145)
[2018-04-18] MEDS: LOSARTAN POTASSIUM 25 MG TABLET PO SCH (09:53)
[2018-04-18] MEDS: FLUTICASONE/SALMETEROL 100 MCG/50 MCG DISKUS IH SCH ×2 (09:53→21:06)
[2018-04-18] MEDS: metoPROLOL SUCCINATE 25 MG TAB.SR.24H (FP) PO SCH (09:53)
--- NOTE | 2018-04-18 13:25 | PN ---
Progress Note, Physician History of Present Illness: No c/o leg pain No fever/ chills Afebrile Tolerating cephalosporin - Current Medication List Current Medications: Active Medications Acetaminophen (Tylenol -) 650 mg PO Q6H PRN PRN Reason: FEVER Heparin Sodium (Porcine) (Heparin -) 5,000 unit SQ TID [facility] Last Admin: 04/18/18 13:05 Dose: 5,000 unit Cefazolin Sodium 1 gm/ (Dextrose) 50 mls @ 100 mls/hr IVPB Q8H-IV [facility] Last Admin: 04/18/18 09:53 Dose: 100 mls/hr Levothyroxine Sodium (Synthroid -) 88 mcg PO DAILY@0700 [facility] Last Admin: 04/18/18 06:20 Dose: 88 mcg Losartan Potassium (Cozaar -) 25 mg PO DAILY [facility] Last Admin: 04/18/18 09:53 Dose: 25 mg Metoprolol Succinate (Toprol Xl -) 25 mg PO DAILY [facility] Last Admin: 04/18/18 09:53 Dose: 25 mg Fluticasone/Salmeterol (Advair 100mcg/50mcg -) 1 puff IH BID [facility] Last Admin: 04/18/18 09:53 Dose: 1 puff - Objective Vital Signs: Vital Signs Temperature 97.4 F L 04/18/18 09:00 Pulse Rate 85 04/18/18 09:00 Respiratory Rate 18 04/18/18 09:00 Blood Pressure 138/92 04/18/18 09:00 O2 Sat by Pulse Oximetry (%) 96 04/18/18 09:00 Constitutional: Yes: No Distress Eyes: Yes: Conjunctiva Clear Cardiovascular: Yes: Regular Rate and Rhythm, S1, S2 Respiratory: Yes: CTA Bilaterally Gastrointestinal: Yes: Normal Bowel Sounds, Soft. No: Tenderness Extremities: Yes: Other (decreased erythema/ warmth/ swelling LE) Labs: CBC, BMP 04/18/18 06:00 04/18/18 06:00 Assessment/Plan Bilateral LE cellulitis Chronic venous stasis dermatitis/ ulcer PCN allergy UTI Continue cefazolin Local wound care
--- NOTE | 2018-04-18 14:37 | PN ---
Teaching Attending Note Name of Resident: Divine Sin ATTENDING PHYSICIAN STATEMENT I saw and evaluated the patient. I reviewed the resident's note and discussed the case with the resident. I agree with the resident's findings and plan as documented. SUBJECTIVE: pain in L leg has improved . able to walk OBJECTIVE: NAD, MMM Cv: RRR Lungs: CATB Ext: RLE with slight erythema, nl warmth and scaly thickened skin. L leg with erythema , increased warmth and edema ( improved ). Ulcers on L leg. DP 2+ b/l decreased drainage form wounds Assessment/Plan: 78 y/o lady with h/o Asthma, PVD, chronci ulcers, hypothyroidism and HTN, ? dementia , who presented with worsening LLE wound . 1- LLE purulent cellulites: Improved - Cont cefazoline. hopefully we can transition to po Abx soon - wound cx pending 2- Asymptomatic bacteruria . will not treat 3- H/o HTN: cont losartan and toprol 5- Asthma: stable. - Advair 6- DVT PX Dispo: dc pending ability to transition to PO abx
--- NOTE | 2018-04-18 20:01 | PN ---
Physical Exam: SUBJECTIVE: Patient seen and examined at bedside. No acute events overnight. Today, pt states that she feels well. With decreased pain in LLE. Reading newspaper. Denies MCCARTY, fever, chills, SOB, or changes in urinary or bowel function. OBJECTIVE: Vital Signs Period Temp Pulse Resp BP Sys/[place] Pulse Ox Last 24 Hr 97.4 F-99.6 F 76-89 18-20 110-142/54-92 95-96 GENERAL: The patient is sitting comfortably in bed. awake, alert, and fully oriented, in no acute distress. HEAD: Normal with no signs of trauma. EYES: PERRL, extraocular movements intact, sclera anicteric, conjunctiva clear. ENT: Ears normal, nares patent NECK: Trachea midline, supple. LUNGS: Breath sounds equal, clear to auscultation bilaterally, no wheezes, no crackles, no accessory muscle use. HEART: Regular rate and rhythm, S1, S2 without murmur, rub or gallop. ABDOMEN: Soft, nontender, nondistended, normoactive bowel sounds, no guarding. EXTREMITIES: 2+ pt pulses. +RLE: improved erythema, 2+ pitting edema, chronic changes, scaling. +LLE: with multiple healing ulcerations laterally, posteriorly. without drainage. improved erythema. anterior ulceration - with scabbing NEUROLOGICAL: Cranial nerves II through XII grossly intact. +decreased ROM LLE d /t pain PSYCH: Normal mood, normal affect. SKIN: Warm, dry, normal turgor Laboratory Results - last 24 hr 04/18/18 04/18/18 06:00 06:00 WBC 3.4 L D RBC 3.24 L Hgb 10.1 L D Hct 29.7 L MCV 91.9 MCH 31.2 MCHC 34.0 RDW 14.2 Plt Count 267 D MPV 6.3 L Absolute Neuts (auto) 1.8 Neutrophils % 51.7 D Lymphocytes % 32.4 D Monocytes % 12.1 H Eosinophils % 3.1 D Basophils % 0.7 Nucleated RBC % 0 Sodium 141 Potassium 3.4 L Chloride 107 Carbon Dioxide 25 Anion Gap 9 BUN 11 Creatinine 0.5 L Random Glucose 91 Calcium 7.9 L Phosphorus 3.2 Magnesium 2.3 Active Medications Generic Name Dose Route Start Last Admin Trade Name Freq PRN Reason Stop Dose Admin Acetaminophen 650 mg 04/16/18 00:40 Tylenol - PO Q6H PRN FEVER Heparin Sodium (Porcine) 5,000 unit 04/16/18 06:00 04/18/18 13:05 Heparin - SQ 5,000 unit TID IDA Administration Cefazolin Sodium 1 gm/ 50 mls @ 100 mls/hr 04/16/18 16:00 04/18/18 17:09 Dextrose IVPB 100 mls/hr Q8H-IV IDA Administration Levothyroxine Sodium 88 mcg 04/17/18 15:36 04/18/18 06:20 Synthroid - PO 88 mcg DAILY@0700 IDA Administration Losartan Potassium 25 mg 04/16/18 10:00 04/18/18 09:53 Cozaar - PO 25 mg DAILY IDA Administration Metoprolol Succinate 25 mg 04/16/18 10:00 04/18/18 09:53 Toprol Xl - PO 25 mg DAILY IDA Administration Fluticasone/Salmeterol 1 puff 04/16/18 22:00 04/18/18 09:53 Advair 100mcg/50mcg - IH 1 puff BID IDA Administration Microbiology 04/17/18 15:00 Cellulitis Gram Stain - Final 04/15/18 12:43 Urine - Urine Clean Catch Urine Culture - Final Escherichia Coli 04/15/18 18:55 Blood - Peripheral Venous Blood Culture - Preliminary NO GROWTH OBTAINED AFTER 72 HOURS, INCUBATION TO CONTINUE FOR 2 DAYS. 04/15/18 16:44 Blood - Peripheral Venous Blood Culture - Preliminary NO GROWTH OBTAINED AFTER 72 HOURS, INCUBATION TO CONTINUE FOR 2 DAYS. Imaging 04/15/18: B/L duplex: (-) DVT 04/15/18: CXR: no acute pathology ASSESSMENT/PLAN: 78 y/o F with h/o asthma, PVD, chronic ulcers, hypothyroidism, HTN, ?dementia, who presented to the ED with LLE wound. #LLE purulent cellulitis -LLE ulcerations - today without drainage, improving erythema -initially was on vanc, aztreonam -has been changed to cefazolin 1 gm q8h - Today is Day 2 -F/u blood cx: (-) 72hrs -wound cx - sent, however was after pt on abx. will f/u #asymptomatic pyuria -though ucx with E.coli, no need to tx as pt asymptomatic -will continue to monitor #h/o HTN-controlled -Continue losartan 25mg PO qd -toprol 25mg PO qd #hypothyroidism -continue synthroid 88mcg PO qd #asthma -currently not in exacerbation -continue advair 100mcg/50mcg - 1 puff IH BID #F/E/N -not on IVF; encourage PO intake -continue to follow lytes -regular diet #PPX DVT: Hep 5000 U SQ TID #Dispo continued monitoring on med-surg Visit type - Emergency Visit Emergency Visit: No - New Patient This patient is new to me today: No - Critical Care Critical Care patient: No
[2018-04-18] MEDS ORDERED: PT OWN MED DRAWER 7, Y5N ONE (20:15)
[2018-04-19] MEDS ORDERED: DEXTROSE 5%-WATER - 50 ML IVPB ONE ×3 (02:14→18:07)
[2018-04-19] MEDS ORDERED: ceFAZolin SODIUM 1 GM VIAL ONE ×3 (02:14→18:07)
[2018-04-19] MEDS: CEFAZOLIN 1 GM in DEXTROSE 5%-WATER - 50 ML IVPB SCH ×3 (02:15→18:15)
[2018-04-19] MEDS: HEPARIN NA (PORCINE) 5,000 UNITS/ML 1ML VIAL SQ SCH ×3 (05:55→22:18)
[2018-04-19] MEDS: LEVOTHYROXINE NA 88 MCG TABLET (FP) PO SCH (06:03)
[2018-04-19 07:59] LABS: BASO % 0.8 % (0-2.0); EOS % 3.9 % (0-4.5); HEMATOCRIT 31.2 % (32.4-45.2); HEMOGLOBIN 10.5 GM/dL (10.7-15.3); LYMPH % 26.6 % (8-40); MCH 31.1 pg (25.7-33.7); MCHC 33.7 g/dl (32.0-36.0); MEAN CELL VOLUME 92.3 fl (80-96); MEAN PLT VOLUME 6.4 fl (7.5-11.1); MONO % 11.4 % (3.8-10.2); NEUT % 57.3 % (42.8-82.8); PLATELET COUNT 278 K/MM3 (134-434); RBC 3.38 M/mm3 (3.60-5.2); RDW 14.4 % (11.6-15.6)
[2018-04-19 08:01] LABS: CHLORIDE 107 mmol/L (98-107); SODIUM 140 mmol/L (136-145)
[2018-04-19 08:15] LABS: ANION GAP 5 (8-16); BLOOD UREA NITROGEN 14 mg/dL (7-18); CALCIUM 8.1 mg/dL (8.5-10.1); CO2 28 mmol/L (21-32); CREATININE 0.5 mg/dL (0.55-1.02); GLUCOSE,RANDOM 82 mg/dL (74-106)
--- NOTE | 2018-04-19 10:02 | PN ---
Progress Note, Physician History of Present Illness: No c/o leg pain at present Bleeding noted from superficial ulcers No fever/ chills Afebrile Tolerating cephalosporin Denies urinary tract symptoms - Current Medication List Current Medications: Active Medications Acetaminophen (Tylenol -) 650 mg PO Q6H PRN PRN Reason: FEVER Heparin Sodium (Porcine) (Heparin -) 5,000 unit SQ TID [facility] Last Admin: 04/19/18 05:55 Dose: 5,000 unit Cefazolin Sodium 1 gm/ (Dextrose) 50 mls @ 100 mls/hr IVPB Q8H-IV [facility] Last Admin: 04/19/18 02:15 Dose: 100 mls/hr Levothyroxine Sodium (Synthroid -) 88 mcg PO DAILY@0700 [facility] Last Admin: 04/19/18 06:03 Dose: 88 mcg Losartan Potassium (Cozaar -) 25 mg PO DAILY [facility] Last Admin: 04/18/18 09:53 Dose: 25 mg Metoprolol Succinate (Toprol Xl -) 25 mg PO DAILY [facility] Last Admin: 04/18/18 09:53 Dose: 25 mg Fluticasone/Salmeterol (Advair 100mcg/50mcg -) 1 puff IH BID [facility] Last Admin: 04/18/18 21:06 Dose: 1 puff - Objective Vital Signs: Vital Signs Temperature 98.6 F 04/19/18 05:00 Pulse Rate 85 04/19/18 05:00 Respiratory Rate 20 04/19/18 05:00 Blood Pressure 125/73 04/19/18 05:00 O2 Sat by Pulse Oximetry (%) 96 04/18/18 21:00 Constitutional: Yes: No Distress Eyes: Yes: Conjunctiva Clear Cardiovascular: Yes: Regular Rate and Rhythm, S1, S2 Respiratory: Yes: CTA Bilaterally Gastrointestinal: Yes: Normal Bowel Sounds, Soft. No: Tenderness Extremities: Yes: Other (decreased LE swelling/warmth/ erythema. + bloody drainage from L LE ulcer) Labs: CBC, BMP 04/19/18 06:00 04/19/18 06:00 Assessment/Plan Bilateral LE cellulitis - improved Chronic venous stasis dermatitis/ ulcer PCN allergy Continue cefazolin Local wound care
[2018-04-19] MEDS ORDERED: SILVER SULFADIAZINE 1% TOP CREAM 400 GM JAR TP SCH (10:45)
[2018-04-19] MEDS: FLUTICASONE/SALMETEROL 100 MCG/50 MCG DISKUS IH SCH ×2 (10:57→22:17)
[2018-04-19] MEDS: metoPROLOL SUCCINATE 25 MG TAB.SR.24H (FP) PO SCH (11:09)
[2018-04-19] MEDS: LOSARTAN POTASSIUM 25 MG TABLET PO SCH (11:09)
--- NOTE | 2018-04-19 11:27 | PN ---
Teaching Attending Note Name of Resident: Divine Sin ATTENDING PHYSICIAN STATEMENT I saw and evaluated the patient. I reviewed the resident's note and discussed the case with the resident. I agree with the resident's findings and plan as documented. SUBJECTIVE: Patient deneis any fever, no shortness of breath, no chest pain. OBJECTIVE: Vital Signs Temperature 98.6 F 04/19/18 05:00 Pulse Rate 85 04/19/18 05:00 Respiratory Rate 20 04/19/18 05:00 Blood Pressure 125/73 04/19/18 05:00 O2 Sat by Pulse Oximetry (%) 96 04/18/18 21:00 CBCD WBC 4.0 K/mm3 (4.0-10.0) 04/19/18 06:00 RBC 3.38 M/mm3 (3.60-5.2) L 04/19/18 06:00 Hgb 10.5 GM/dL (10.7-15.3) L 04/19/18 06:00 Hct 31.2 % (32.4-45.2) L 04/19/18 06:00 MCV 92.3 fl (80-96) 04/19/18 06:00 MCHC 33.7 g/dl (32.0-36.0) 04/19/18 06:00 RDW 14.4 % (11.6-15.6) 04/19/18 06:00 Plt Count 278 K/MM3 (134-434) 04/19/18 06:00 MPV 6.4 fl (7.5-11.1) L 04/19/18 06:00 CMP Sodium 140 mmol/L (136-145) 04/19/18 06:00 Potassium 4.0 mmol/L (3.5-5.1) 04/19/18 06:00 Chloride 107 mmol/L (98-107) 04/19/18 06:00 Carbon Dioxide 28 mmol/L (21-32) 04/19/18 06:00 Anion Gap 5 (8-16) L 04/19/18 06:00 BUN 14 mg/dL (7-18) 04/19/18 06:00 Creatinine 0.5 mg/dL (0.55-1.02) L 04/19/18 06:00 Creat Clearance w eGFR > 60 (>60) 04/15/18 21:10 Random Glucose 82 mg/dL (74-106) 04/19/18 06:00 Calcium 8.1 mg/dL (8.5-10.1) L 04/19/18 06:00 Total Bilirubin 0.5 mg/dL (0.2-1.0) 04/15/18 21:10 AST 30 U/L (15-37) 04/15/18 21:10 ALT 22 U/L (12-78) 04/15/18 21:10 Alkaline Phosphatase 89 U/L (45-117) 04/15/18 21:10 Total Protein 6.7 g/dl (6.4-8.2) 04/15/18 21:10 Albumin 3.2 g/dl (3.4-5.0) L 04/15/18 21:10 Current Medications Generic Name Dose Route Start Last Admin Trade Name Freq PRN Reason Stop Dose Admin Acetaminophen 650 mg 04/16/18 00:40 Tylenol - PO Q6H PRN FEVER Heparin Sodium (Porcine) 5,000 unit 04/16/18 06:00 04/19/18 05:55 Heparin - SQ 5,000 unit TID IDA Administration Cefazolin Sodium 1 gm/ 50 mls @ 100 mls/hr 04/16/18 16:00 04/19/18 11:08 Dextrose IVPB 100 mls/hr Q8H-IV IDA Administration Levothyroxine Sodium 88 mcg 04/17/18 15:36 04/19/18 06:03 Synthroid - PO 88 mcg DAILY@0700 IDA Administration Losartan Potassium 25 mg 04/16/18 10:00 04/19/18 11:09 Cozaar - PO 25 mg DAILY IDA Administration Metoprolol Succinate 25 mg 04/16/18 10:00 04/19/18 11:09 Toprol Xl - PO 25 mg DAILY IDA Administration Fluticasone/Salmeterol 1 puff 04/16/18 22:00 04/19/18 10:57 Advair 100mcg/50mcg - IH 1 puff BID IDA Administration Silver Sulfadiazine 1 applic 04/19/18 11:03 Silvadene - TP DAILY IDA Home Medications Medication Instructions Recorded Fluticasone/Salmeterol [Advair 1 puff IH DAILY 04/15/18 250-50 Diskus] Levothyroxine [Synthroid -] 88 mcg PO DAILY 04/15/18 Losartan Potassium 25 mg PO DAILY 04/15/18 Metoprolol Succinate 25 mg PO DAILY 04/15/18 Potassium Chloride 20 meq PO DAILY 04/15/18 Famotidine [Pepcid] 20 mg PO 04/17/18 Microbiology 04/17/18 15:00 Cellulitis Gram Stain - Final 04/17/18 15:00 Cellulitis Wound Culture - Preliminary Staphylococcus Latex Coag Pos Pending Organism 04/15/18 18:55 Blood - Peripheral Venous Blood Culture - Preliminary NO GROWTH OBTAINED AFTER 72 HOURS, INCUBATION TO CONTINUE FOR 2 DAYS. 04/15/18 16:44 Blood - Peripheral Venous Blood Culture - Preliminary NO GROWTH OBTAINED AFTER 72 HOURS, INCUBATION TO CONTINUE FOR 2 DAYS. 04/15/18 12:43 Urine - Urine Clean Catch Urine Culture - Final Escherichia Coli PE: per resident's note ASSESSMENT AND PLAN: Patient is a 78 y/o female with h/o Asthma, PVD, chronic ulcers, hypothyroidism and HTN, ? dementia , who presented with worsening LLE wound . # LLE purulent cellulites: Improved on IV cefazoline. continue, wound cx pending # Asymptomatic bacteruria . will not treat since patient is asymptomatic # H/o HTN: cont losartan and toprol # Asthma: stable. continue Advair DVT PX Dispo: dc pending ability to transition to PO abx
--- NOTE | 2018-04-19 14:14 | PN ---
Physical Exam: SUBJECTIVE: Patient seen and examined at bedside. No acute events overnight; afebrile. Today, pt without complaint. States that her LLE appears much improved , less swollen. Denies MCCARTY, fever, chills, or chest pain. OBJECTIVE: Vital Signs Period Temp Pulse Resp BP Sys/[place] Pulse Ox Last 24 Hr 97.8 F-98.8 F 79-89 18-20 121-142/73-92 96-96 GENERAL: The patient is resting comfortably in bed. awake, alert, and fully oriented, in no acute distress. HEAD: Normal with no signs of trauma. EYES: PERRL, extraocular movements intact, sclera anicteric, conjunctiva clear. No ptosis. ENT: Ears normal, nares patent, oropharynx clear without exudates NECK: Trachea midline, supple. LUNGS: Breath sounds equal, clear to auscultation bilaterally, no wheezes, no crackles, no accessory muscle use. HEART: Regular rate and rhythm, S1, S2 without murmur, rub or gallop. ABDOMEN: Soft, nontender, nondistended, normoactive bowel sounds, no guarding, no rebound EXTREMITIES: 2+ dp pulses, +RLE - erythema, scaling. +LLE: improved edema, with increased scaling. posterior ulcer - with bleeding, lateral ulcers with crusting NEUROLOGICAL: Cranial nerves II through XII grossly intact. PSYCH: Normal mood, normal affect. SKIN: Warm, dry, normal turgor, no rashes or lesions noted Laboratory Results - last 24 hr 04/19/18 04/19/18 06:00 06:00 WBC 4.0 RBC 3.38 L Hgb 10.5 L Hct 31.2 L MCV 92.3 MCH 31.1 MCHC 33.7 RDW 14.4 Plt Count 278 MPV 6.4 L Absolute Neuts (auto) 2.3 Neutrophils % 57.3 Lymphocytes % 26.6 Monocytes % 11.4 H Eosinophils % 3.9 Basophils % 0.8 Nucleated RBC % 0 Sodium 140 Potassium 4.0 Chloride 107 Carbon Dioxide 28 Anion Gap 5 L BUN 14 Creatinine 0.5 L Random Glucose 82 Calcium 8.1 L Active Medications Generic Name Dose Route Start Last Admin Trade Name Freq PRN Reason Stop Dose Admin Acetaminophen 650 mg 04/16/18 00:40 Tylenol - PO Q6H PRN FEVER Heparin Sodium (Porcine) 5,000 unit 06/03/18 06:00 04/19/18 05:55 Heparin - SQ 5,000 unit TID IDA Administration Cefazolin Sodium 1 gm/ 50 mls @ 100 mls/hr 04/16/18 16:00 04/19/18 11:08 Dextrose IVPB 100 mls/hr Q8H-IV IDA Administration Levothyroxine Sodium 88 mcg 04/17/18 15:36 04/19/18 06:03 Synthroid - PO 88 mcg DAILY@0700 IDA Administration Losartan Potassium 25 mg 04/16/18 10:00 04/19/18 11:09 Cozaar - PO 25 mg DAILY IDA Administration Metoprolol Succinate 25 mg 04/16/18 10:00 04/19/18 11:09 Toprol Xl - PO 25 mg DAILY IDA Administration Fluticasone/Salmeterol 1 puff 04/16/18 22:00 04/19/18 10:57 Advair 100mcg/50mcg - IH 1 puff BID IDA Administration Silver Sulfadiazine 1 applic 04/19/18 11:03 Silvadene - TP DAILY [facility] Microbiology 04/17/18 15:00 Cellulitis Gram Stain - Final 04/15/18 12:43 Urine - Urine Clean Catch Urine Culture - Final Escherichia Coli 04/17/18 15:00 Cellulitis Wound Culture - Preliminary Staphylococcus Species Pending Organism 04/15/18 18:55 Blood - Peripheral Venous Blood Culture - Preliminary NO GROWTH OBTAINED AFTER 72 HOURS, INCUBATION TO CONTINUE FOR 2 DAYS. 04/15/18 16:44 Blood - Peripheral Venous Blood Culture - Preliminary NO GROWTH OBTAINED AFTER 72 HOURS, INCUBATION TO CONTINUE FOR 2 DAYS. Imaging 04/15/18: B/L duplex: (-) DVT 04/15/18: CXR: no acute pathology ASSESSMENT/PLAN: 78 y/o F with h/o asthma, PVD, chronic ulcers, hypothyroidism, HTN, ?dementia, who presented to the ED with LLE wound. #LLE purulent cellulitis -LLE ulcerations - improving edema, however with bleeding, scabbing -initially was on vanc, aztreonam -has been changed to cefazolin 1 gm q8h - Today is Day 3. -Will need continued IV abx for few more days, then will switch to PO -apply silver sulfadiazene to affected area qd -LEXA bandage -F/u blood cx: (-) 72hrs -wound cx - staphylococcus #asymptomatic pyuria -though ucx with E.coli, no need to tx as pt asymptomatic -will continue to monitor #h/o HTN-controlled -Continue losartan 25mg PO qd -toprol 25mg PO qd #hypothyroidism -continue synthroid 88mcg PO qd #asthma -currently not in exacerbation -continue advair 100mcg/50mcg - 1 puff IH BID #F/E/N -not on IVF; encourage PO intake -continue to follow lytes -regular diet #PPX DVT: Hep 5000 U SQ TID #Dispo continued monitoring on med-surg Visit type - Emergency Visit Emergency Visit: No - New Patient This patient is new to me today: No - Critical Care Critical Care patient: No
[2018-04-20] MEDS ORDERED: DEXTROSE 5%-WATER - 50 ML IVPB ONE ×3 (01:30→16:56)
[2018-04-20] MEDS ORDERED: ceFAZolin SODIUM 1 GM VIAL ONE ×4 (01:30→20:37)
[2018-04-20] MEDS: CEFAZOLIN 1 GM in DEXTROSE 5%-WATER - 50 ML IVPB SCH ×3 (01:48→17:56)
[2018-04-20] MEDS: HEPARIN NA (PORCINE) 5,000 UNITS/ML 1ML VIAL SQ SCH ×3 (06:40→21:06)
[2018-04-20] MEDS: LEVOTHYROXINE NA 88 MCG TABLET (FP) PO SCH (06:40)
[2018-04-20 07:41] LABS: BASO % 0.8 % (0-2.0); EOS % 5.4 % (0-4.5); HEMATOCRIT 30.4 % (32.4-45.2); HEMOGLOBIN 10.2 GM/dL (10.7-15.3); LYMPH % 37.1 % (8-40); MCH 31.1 pg (25.7-33.7); MCHC 33.6 g/dl (32.0-36.0); MEAN CELL VOLUME 92.4 fl (80-96); MEAN PLT VOLUME 6.4 fl (7.5-11.1); MONO % 11.6 % (3.8-10.2); NEUT % 45.1 % (42.8-82.8); PLATELET COUNT 277 K/MM3 (134-434); RDW 14.2 % (11.6-15.6); WHITE BLOOD COUNT 3.3 K/mm3 (4.0-10.0)
[2018-04-20 08:05] LABS: ALBUMIN 2.2 g/dl (3.4-5.0); ANION GAP 7 (8-16); BILIRUBIN,TOTAL 0.2 mg/dL (0.2-1.0); BLOOD UREA NITROGEN 12 mg/dL (7-18); CHLORIDE 106 mmol/L (98-107); CO2 27 mmol/L (21-32); CREATININE 0.5 mg/dL (0.55-1.02); GLUCOSE,RANDOM 86 mg/dL (74-106); MAGNESIUM 2.4 mg/dL (1.8-2.4); PHOSPHOROUS 3.1 mg/dL (2.5-4.9); POTASSIUM 3.9 mmol/L (3.5-5.1); SGOT/AST 130 U/L (15-37); SODIUM 140 mmol/L (136-145)
[2018-04-20 08:07] LABS: ALK PHOS 82 U/L (45-117); SGPT/ALT 66 U/L (12-78); TOT PROT 5.1 g/dl (6.4-8.2)
[2018-04-20] MEDS: LOSARTAN POTASSIUM 25 MG TABLET PO SCH (11:11)
[2018-04-20] MEDS: FLUTICASONE/SALMETEROL 100 MCG/50 MCG DISKUS IH SCH ×2 (11:11→21:06)
[2018-04-20] MEDS: metoPROLOL SUCCINATE 25 MG TAB.SR.24H (FP) PO SCH (11:11)
[2018-04-20] MEDS: SILVER SULFADIAZINE 1% TOP CREAM 50 GM JAR TP SCH (11:13)
--- NOTE | 2018-04-20 15:33 | PN ---
Progress Note, Physician History of Present Illness: C/O L leg pain No fever/ chills Afebrile Tolerating cephalosporin Denies urinary tract symptoms - Current Medication List Current Medications: Active Medications Acetaminophen (Tylenol -) 650 mg PO Q6H PRN PRN Reason: FEVER Heparin Sodium (Porcine) (Heparin -) 5,000 unit SQ TID [facility] Last Admin: 04/20/18 06:40 Dose: 5,000 unit Cefazolin Sodium 1 gm/ (Dextrose) 50 mls @ 100 mls/hr IVPB Q8H-IV [facility] Last Admin: 04/20/18 11:11 Dose: 100 mls/hr Lactic Acid (Lac-Hydrin 12) 1 applic TP DAILY [facility] Levothyroxine Sodium (Synthroid -) 88 mcg PO DAILY@0700 [facility] Last Admin: 04/20/18 06:40 Dose: 88 mcg Losartan Potassium (Cozaar -) 25 mg PO DAILY [facility] Last Admin: 04/20/18 11:11 Dose: 25 mg Metoprolol Succinate (Toprol Xl -) 25 mg PO DAILY [facility] Last Admin: 04/20/18 11:11 Dose: 25 mg Fluticasone/Salmeterol (Advair 100mcg/50mcg -) 1 puff IH BID [facility] Last Admin: 04/20/18 11:11 Dose: 1 puff Silver Sulfadiazine (Silvadene -) 1 applic TP DAILY [facility] Last Admin: 04/20/18 11:13 Dose: 1 applic - Objective Vital Signs: Vital Signs Temperature 97.8 F 04/20/18 14:26 Pulse Rate 74 04/20/18 14:26 Respiratory Rate 20 04/20/18 14:26 Blood Pressure 126/72 04/20/18 14:26 O2 Sat by Pulse Oximetry (%) 98 04/19/18 21:00 Constitutional: Yes: No Distress Eyes: Yes: Conjunctiva Clear Cardiovascular: Yes: Regular Rate and Rhythm, S1, S2 Respiratory: Yes: CTA Bilaterally Gastrointestinal: Yes: Normal Bowel Sounds, Soft. No: Tenderness Extremities: Yes: Other (decreased LE edema/ erythema / warmth. no drainage or bleeding noted) Labs: CBC, BMP 04/20/18 06:00 04/20/18 06:00 Assessment/Plan Bilateral LE cellulitis - improved Chronic venous stasis dermatitis/ ulcer PCN allergy Continue cefazolin Local wound care
--- NOTE | 2018-04-20 17:06 | PN ---
<Divine Sin - Last Filed: 04/20/18 17:25> Physical Exam: SUBJECTIVE: Patient seen and examined at bedside. No acute events overnight. Today, pt without complaint. Reading newspaper this AM. States that edema has improved in LLE. Without fever, chills, or SOB. OBJECTIVE: Vital Signs Period Temp Pulse Resp BP Sys/[place] Pulse Ox Last 24 Hr 97.6 F-98.4 F 68-79 18-20 118-139/62-87 98 GENERAL: The patient is resting in bed. awake, alert, and fully oriented, in no acute distress. HEAD: Normal with no signs of trauma. EYES: PERRL, extraocular movements intact, sclera anicteric, conjunctiva clear. No ptosis. ENT: Ears normal, nares patent, oropharynx clear without exudates NECK: Trachea midline, supple. LUNGS: Breath sounds equal, clear to auscultation bilaterally, no wheezes, no crackles, no accessory muscle use. HEART: Regular rate and rhythm, S1, S2 without murmur, rub or gallop. ABDOMEN: Soft, nontender, nondistended, normoactive bowel sounds, no guarding, no rebound EXTREMITIES: 2+ dp pulses, +RLE - erythema, scaling. +LLE: improved edema, still with diffuse TTP. increased scaling. posterior ulcer - continues to bleed. lateral ulcers with crusting NEUROLOGICAL: Cranial nerves II through XII grossly intact. PSYCH: Normal mood, normal affect. SKIN: Warm, dry, normal turgor, no rashes or lesions noted Laboratory Results - last 24 hr 04/20/18 04/20/18 06:00 06:00 WBC 3.3 L RBC 3.30 L Hgb 10.2 L Hct 30.4 L MCV 92.4 MCH 31.1 MCHC 33.6 RDW 14.2 Plt Count 277 MPV 6.4 L Absolute Neuts (auto) 1.5 Neutrophils % 45.1 D Lymphocytes % 37.1 D Monocytes % 11.6 H Eosinophils % 5.4 H Basophils % 0.8 Nucleated RBC % 0 Sodium 140 Potassium 3.9 Chloride 106 Carbon Dioxide 27 Anion Gap 7 L BUN 12 Creatinine 0.5 L Creat Clearance w eGFR > 60 Random Glucose 86 Calcium 8.0 L Phosphorus 3.1 Magnesium 2.4 Total Bilirubin 0.2 D AST 130 H ALT 66 Alkaline Phosphatase 82 Total Protein 5.1 L Albumin 2.2 L Active Medications Generic Name Dose Route Start Last Admin Trade Name Freq PRN Reason Stop Dose Admin Acetaminophen 650 mg 04/16/18 00:40 Tylenol - PO Q6H PRN FEVER Heparin Sodium (Porcine) 5,000 unit 04/16/18 06:00 04/20/18 06:40 Heparin - SQ 5,000 unit TID I[facility] Administration Cefazolin Sodium 1 gm/ 50 mls @ 100 mls/hr 04/16/18 16:00 04/20/18 11:11 Dextrose IVPB 100 mls/hr Q8H-IV I[facility] Administration Lactic Acid 1 applic 04/20/18 10:00 Lac-Hydrin 12 TP DAILY [facility] Levothyroxine Sodium 88 mcg 04/17/18 15:36 04/20/18 06:40 Synthroid - PO 88 mcg DAILY@0700 IDA Administration Losartan Potassium 25 mg 04/16/18 10:00 04/20/18 11:11 Cozaar - PO 25 mg DAILY I[facility] Administration Metoprolol Succinate 25 mg 04/16/18 10:00 04/20/18 11:11 Toprol Xl - PO 25 mg DAILY IDA Administration Fluticasone/Salmeterol 1 puff 04/16/18 22:00 04/20/18 11:11 Advair 100mcg/50mcg - IH 1 puff BID IDA Administration Silver Sulfadiazine 1 applic 04/19/18 11:03 04/20/18 11:13 Silvadene - TP 1 applic DAILY IDA Administration Microbiology 04/17/18 15:00 Cellulitis Gram Stain - Final 04/15/18 12:43 Urine - Urine Clean Catch Urine Culture - Final Escherichia Coli 04/17/18 15:00 Cellulitis Wound Culture - Preliminary Staphylococcus Aureus Staphylococcus Species 04/15/18 18:55 Blood - Peripheral Venous Blood Culture - Preliminary NO GROWTH OBTAINED AFTER 96 HOURS, INCUBATION TO CONTINUE FOR 1 DAYS. 04/15/18 16:44 Blood - Peripheral Venous Blood Culture - Preliminary NO GROWTH OBTAINED AFTER 96 HOURS, INCUBATION TO CONTINUE FOR 1 DAYS. Imaging 04/15/18: B/L duplex: (-) DVT 04/15/18: CXR: no acute pathology ASSESSMENT/PLAN: 78 y/o F with h/o asthma, PVD, chronic ulcers, hypothyroidism, HTN, ?dementia, who presented to the ED with LLE wound. #LLE purulent cellulitis -initially was on vanc, aztreonam -has been changed to cefazolin 1 gm q8h - Today is Day 4. -Will need continued IV abx for few more days, then will switch to PO -continue to apply silver sulfadiazene to affected area qd -Podiatry consult- Dr. Coleman -LEXA bandage -F/u blood cx: (-) 96 hrs -wound cx - staph aureus, staph species #asymptomatic pyuria -though ucx with E.coli, no need to tx as pt asymptomatic -will continue to monitor #h/o HTN-controlled -Continue losartan 25mg PO qd -toprol 25mg PO qd #hypothyroidism -continue synthroid 88mcg PO qd #asthma -currently not in exacerbation -continue advair 100mcg/50mcg - 1 puff IH BID #F/E/N -not on IVF; encourage PO intake -continue to follow lytes -regular diet #PPX DVT: Hep 5000 U SQ TID #Dispo continued monitoring on med-surg once improve will change to PO abx Visit type - Emergency Visit Emergency Visit: No - New Patient This patient is new to me today: No - Critical Care Critical Care patient: No <Fransisco Cunningham - Last Filed: 04/20/18 19:31> Physical Exam: Patient is doing better. possible discharge in am.
[2018-04-20] MEDS: AMMONIUM LACTATE 12% LOTION 225 GM BOTTLE TP SCH (17:57)
--- NOTE | 2018-04-20 23:39 | CONSULT ---
Consult - text type - Consultation Consultation Note: Patient seen in bed alert and oriented. VSS. Tmax 98.2. Painful elongated thickened toe nails and dry skin. wbc=3.3, +elongated thickened toe nails with subungual debris x 10, -cellulitis , -ulceration, -mal odor, +xerosis b/l extremities, dressing left calf being tx by vascular, Onychomycosis Xerosis elongated nails Ammonium lactate BID to feet. Will debride nails in am. Will follow.
[2018-04-21] MEDS: CEFAZOLIN 1 GM in DEXTROSE 5%-WATER - 50 ML IVPB SCH ×3 (01:04→17:23)
[2018-04-21] MEDS: HEPARIN NA (PORCINE) 5,000 UNITS/ML 1ML VIAL SQ SCH ×2 (06:14→14:00)
[2018-04-21] MEDS: LEVOTHYROXINE NA 88 MCG TABLET (FP) PO SCH (06:14)
[2018-04-21 07:30] LABS: BASO % 1.3 % (0-2.0); EOS % 6.9 % (0-4.5); HEMATOCRIT 32.6 % (32.4-45.2); HEMOGLOBIN 11.1 GM/dL (10.7-15.3); LYMPH % 30.4 % (8-40); MCH 31.4 pg (25.7-33.7); MEAN CELL VOLUME 92.6 fl (80-96); MEAN PLT VOLUME 6.3 fl (7.5-11.1); NEUT % 49.4 % (42.8-82.8); PLATELET COUNT 294 K/MM3 (134-434); RBC 3.52 M/mm3 (3.60-5.2); RDW 14.7 % (11.6-15.6); WHITE BLOOD COUNT 3.5 K/mm3 (4.0-10.0)
[2018-04-21 08:25] LABS: CHLORIDE 105 mmol/L (98-107); POTASSIUM 4.1 mmol/L (3.5-5.1); SODIUM 139 mmol/L (136-145)
[2018-04-21 08:33] LABS: ANION GAP 7 (8-16); BLOOD UREA NITROGEN 14 mg/dL (7-18); CALCIUM 8.6 mg/dL (8.5-10.1); CO2 27 mmol/L (21-32); CREATININE 0.5 mg/dL (0.55-1.02); GLUCOSE,RANDOM 82 mg/dL (74-106); MAGNESIUM 2.4 mg/dL (1.8-2.4); PHOSPHOROUS 3.6 mg/dL (2.5-4.9)
--- NOTE | 2018-04-21 09:13 | PN ---
Progress Note (short form) - Note Progress Note: Patient seen in bed alert and oriented. VSS. Painful elongated thickened toe nails and dry skin. +elongated thickened toe nails with subungual debris x 10, -cellulitis, - ulceration, -mal odor, +xerosis b/l extremities, dressing left calf being tx by vascular, Onychomycosis Xerosis elongated nails Ammonium lactate BID to feet. Nails debrided x 10. Will follow outpatient. Thank You for consult.
[2018-04-21] MEDS ORDERED: ceFAZolin SODIUM 1 GM VIAL ONE ×2 (09:48→17:21)
[2018-04-21] MEDS ORDERED: PT OWN MED DRAWER 7, Y5N ONE (09:48)
[2018-04-21] MEDS ORDERED: DEXTROSE 5%-WATER - 50 ML IVPB ONE ×2 (09:48→17:21)
[2018-04-21] MEDS: FLUTICASONE/SALMETEROL 100 MCG/50 MCG DISKUS IH SCH (09:50)
[2018-04-21] MEDS: metoPROLOL SUCCINATE 25 MG TAB.SR.24H (FP) PO SCH (09:50)
[2018-04-21] MEDS: LOSARTAN POTASSIUM 25 MG TABLET PO SCH (09:50)
[2018-04-21] MEDS: AMMONIUM LACTATE 12% LOTION 225 GM BOTTLE TP SCH (09:51)
--- NOTE | 2018-04-21 10:48 | PN ---
Progress Note, Physician History of Present Illness: No c/o L leg pain at rest No fever/ chills Afebrile Tolerating cephalosporin - Current Medication List Current Medications: Active Medications Acetaminophen (Tylenol -) 650 mg PO Q6H PRN PRN Reason: FEVER Heparin Sodium (Porcine) (Heparin -) 5,000 unit SQ TID [facility] Last Admin: 04/21/18 06:14 Dose: 5,000 unit Cefazolin Sodium 1 gm/ (Dextrose) 50 mls @ 100 mls/hr IVPB Q8H-IV [facility] Last Admin: 04/21/18 09:50 Dose: 100 mls/hr Lactic Acid (Lac-Hydrin 12) 1 applic TP DAILY [facility] Last Admin: 04/21/18 09:51 Dose: 1 applic Levothyroxine Sodium (Synthroid -) 88 mcg PO DAILY@0700 [facility] Last Admin: 04/21/18 06:14 Dose: 88 mcg Losartan Potassium (Cozaar -) 25 mg PO DAILY [facility] Last Admin: 04/21/18 09:50 Dose: 25 mg Metoprolol Succinate (Toprol Xl -) 25 mg PO DAILY [facility] Last Admin: 04/21/18 09:50 Dose: 25 mg Fluticasone/Salmeterol (Advair 100mcg/50mcg -) 1 puff IH BID [facility] Last Admin: 04/21/18 09:50 Dose: 1 puff Silver Sulfadiazine (Silvadene -) 1 applic TP DAILY [facility] Last Admin: 04/20/18 11:13 Dose: 1 applic - Objective Vital Signs: Vital Signs Temperature 98.6 F 04/21/18 09:00 Pulse Rate 81 04/21/18 09:00 Respiratory Rate 18 04/21/18 09:00 Blood Pressure 126/74 04/21/18 09:00 O2 Sat by Pulse Oximetry (%) 97 04/21/18 09:00 Constitutional: Yes: No Distress Eyes: Yes: Conjunctiva Clear Cardiovascular: Yes: Regular Rate and Rhythm, S1, S2 Respiratory: Yes: CTA Bilaterally Gastrointestinal: Yes: Normal Bowel Sounds, Soft. No: Tenderness Extremities: Yes: Other (decreased edema LE bilaterally. resolving erythema/ warmth. no drainage) Labs: CBC, BMP 04/21/18 06:00 04/21/18 07:40 Assessment/Plan Bilateral LE cellulitis - improved Chronic venous stasis dermatitis/ ulcer PCN allergy Substitute keflex 500mg po q6h x 7d Outpatient vascular follow up Local wound care
[2018-04-21] MEDS: SILVER SULFADIAZINE 1% TOP CREAM 50 GM JAR TP SCH (10:51)
--- NOTE | 2018-04-21 14:21 | DS ---
Physical Exam: SUBJECTIVE: Patient seen and examined at bedside. No acute events overnight. Today, pt states that the pain in her LLE has improved. In good spirits, and excited to go home. Pt was able to ambulate with physical therapy, and states that she has a cane at home that she uses. Denies MCCARTY, fever, chills, or changes in urinary or bowel function. OBJECTIVE: Vital Signs Period Temp Pulse Resp BP Sys/[place] Pulse Ox Last 24 Hr 97.8 F-98.6 F 72-85 18-20 105-133/61-79 97-98 PHYSICAL EXAM GENERAL: The patient is resting comfortably in bed, reading. awake, alert, and fully oriented, in no acute distress. HEAD: Normal with no signs of trauma. EYES: PERRL, extraocular movements intact, sclera anicteric, conjunctiva clear. ENT: Ears normal, nares patent, oropharynx clear without exudates, moist mucous membranes. NECK: Trachea midline, supple. LUNGS: Breath sounds equal, clear to auscultation bilaterally, no wheezes, no crackles, no accessory muscle use. HEART: Regular rate and rhythm, S1, S2 without murmur, rub or gallop. ABDOMEN: Soft, nontender, nondistended, normoactive bowel sounds, no guarding EXTREMITIES: 2+ dp pulses. +b/l chronic changes, scaling. +improved edema, erythema in LLE. multiple wounds in lateral and posterior aspect. Posterior wound with mild sanguineous drainage, however improved and coagulated. NEUROLOGICAL: Cranial nerves II through XII grossly intact. Normal speech PSYCH: Normal mood, normal affect. SKIN: Warm, dry, normal turgor LABS Last 24 hrs 04/21/18 04/21/18 06:00 07:40 WBC 3.5 L RBC 3.52 L Hgb 11.1 Hct 32.6 MCV 92.6 MCH 31.4 MCHC 34.0 RDW 14.7 Plt Count 294 MPV 6.3 L Absolute Neuts (auto) 1.7 Neutrophils % 49.4 Lymphocytes % 30.4 Monocytes % 12.0 H Eosinophils % 6.9 H Basophils % 1.3 Nucleated RBC % 0 Sodium 139 Potassium 4.1 Chloride 105 Carbon Dioxide 27 Anion Gap 7 L BUN 14 Creatinine 0.5 L Random Glucose 82 Calcium 8.6 Phosphorus 3.6 Magnesium 2.4 WBC Trend 04/15/18 04/15/18 04/18/18 16:44 21:10 06:00 WBC 4.6 4.9 3.4 L D 04/19/18 04/20/18 04/21/18 06:00 06:00 06:00 WBC 4.0 3.3 L 3.5 L Urinalysis 04/15/18 20:00 Urine Ketones Trace H Urine Blood 1+ H Urine Nitrite Negative Urine Bilirubin Negative Urine Urobilinogen Negative Ur Leukocyte Esterase 3+ H Urine WBC (Auto) 67 Liver function tests 04/15/18 04/20/18 21:10 06:00 AST 30 130 H ALT 22 66 Alkaline Phosphatase 89 82 Total Protein 6.7 5.1 L Albumin 3.2 L 2.2 L H/H 04/15/18 04/15/18 04/18/18 16:44 21:10 06:00 Hgb 11.3 11.5 10.1 L D Hct 34.4 34.6 29.7 L 04/19/18 04/20/18 04/21/18 06:00 06:00 06:00 Hgb 10.5 L 10.2 L 11.1 Hct 31.2 L 30.4 L 32.6 lactic acid 04/15/18 04/15/18 16:44 21:10 Lactic Acid 1.0 1.0 Microbiology 04/17/18 15:00 Cellulitis Gram Stain - Final 04/15/18 18:55 Blood - Peripheral Venous Blood Culture - Final NO GROWTH AFTER 5 DAYS INCUBATION 04/15/18 16:44 Blood - Peripheral Venous Blood Culture - Final NO GROWTH AFTER 5 DAYS INCUBATION 04/15/18 12:43 Urine - Urine Clean Catch Urine Culture - Final Escherichia Coli 04/17/18 15:00 Cellulitis Wound Culture - Preliminary Staphylococcus Aureus Staphylococcus Species Imaging 04/15/18: B/L duplex: (-) DVT 04/15/18: CXR: no acute pathology HOSPITAL COURSE: Date of Admission:04/16/18 Date of Discharge: 04/21/18 Admit diagnosis: LLE purulent cellulitis 78 y/o F with dementia, recurrent past episodes of cellulitis, PVD (follows with Dr. Almeida) HTN, asthma, and hypothyroidism, who presented to the ED with pain and erythema in her L lower extremity. Over the last few months, pt noticed that her LLE was becoming increasingly swollen. During this time, she developed multiple wounds located laterally and posteriorly. Duplex was (-) for DVT. Of note, pt follows with Dr. Almeida for her PVD and venous stasis. She has also had multiple episodes of past cellulitis in her lower limbs, however does not recall the course of abx she had been on. Pt admitted for LLE purulent cellulitis. In the ED, pt received clindamycin and was started on vanc, aztreonam. She was changed to cefazolin 1gm IVPB q8h of which she completed a five day course. Blood cx were negative, and wound culture grew staph aureus. Pt will be d/c on keflex 500mg PO q6h for seven days. She will have wound care done by [facility], which will include: application of silver sulfadiazene to affected area qd (using different applicators), as well as ammonium lactate application to moisturize the area. Pt will f/u with wound care, Dr. Almeida (vascular). Discussed with pt. On D/c, pt also able to ambulate >100 feet using rolling walker. States that she has a rolling walker and cane at home for ambulation. Minutes to complete discharge: 55 <Divine Sin - Last Filed: 04/21/18 15:21> Physical Exam: Agree with the plan. Patient will discharged home on Keflex 500mg po q6h x 7 days , also Silvadene cream to apply on Lower extremitis. <Fransisco Cunningham - Last Filed: 04/21/18 16:10> Discharge Summary Reason For Visit: CELLULITIS UTI Current Active Problems Cellulitis (Acute) Hypertension (Chronic) Peripheral vascular disease (Chronic) - Home Medications Comprehensive Discharge Medication List: Ambulatory Orders Fluticasone/Salmeterol [Advair 250-50 Diskus] 1 puff IH DAILY 04/15/18 Levothyroxine [Synthroid -] 88 mcg PO DAILY 04/15/18 Losartan Potassium 25 mg PO DAILY 04/15/18 Metoprolol Succinate 25 mg PO DAILY 04/15/18 Potassium Chloride 20 meq PO DAILY 04/15/18 Famotidine [Pepcid] 20 mg PO 04/17/18 Ammonium Lactate Lotion [Lac-Hydrin 12] 1 applic TP DAILY #1 bottle 04/21/18 Cephalexin [Keflex] 500 mg PO Q6H #28 capsule 04/21/18 Polyhexam Biguan/Gauze Bandage [Kerlix Amd Bandage 0.2% Roll] 1 each TP DAILY # 7 bandage 04/21/18 Polyhexam Biguan/Non-Adh Band [Telfa 3"X8" Non-Adherent Pad] 1 each TP DAILY # 20 bandage 04/21/18 Silver Sulfadiazine 1% Top Cr [Silvadene -] 1 applic TP DAILY #1 jar 04/21/18 <Divine Sin - Last Filed: 04/21/18 15:21> Current Active Problems Cellulitis (Acute) Hypertension (Chronic) Peripheral vascular disease (Chronic) - Home Medications Comprehensive Discharge Medication List: Ambulatory Orders Fluticasone/Salmeterol [Advair 250-50 Diskus] 1 puff IH DAILY 04/15/18 Levothyroxine [Synthroid -] 88 mcg PO DAILY 04/15/18 Losartan Potassium 25 mg PO DAILY 04/15/18 Metoprolol Succinate 25 mg PO DAILY 04/15/18 Potassium Chloride 20 meq PO DAILY 04/15/18 Famotidine [Pepcid] 20 mg PO 04/17/18 Ammonium Lactate Lotion [Lac-Hydrin 12] 1 applic TP DAILY #1 bottle 04/21/18 Cephalexin [Keflex] 500 mg PO Q6H #28 capsule 04/21/18 Polyhexam Biguan/Gauze Bandage [Kerlix Amd Bandage 0.2% Roll] 1 each TP DAILY # 7 bandage 04/21/18 Polyhexam Biguan/Non-Adh Band [Telfa 3"X8" Non-Adherent Pad] 1 each TP DAILY # 20 bandage 04/21/18 Silver Sulfadiazine 1% Top Cr [Silvadene -] 1 applic TP DAILY #1 jar 04/21/18 <Fransisco Cunningham - Last Filed: 04/21/18 16:10> Condition: Stable - Instructions Diet, Activity, Other Instructions: You were in the hospital for a skin infection of your left leg called cellulitis. While you were here, you were on IV antibiotics. You completed a five day course. We are sending you home on antibiotics that you can take by mouth. Your visit you were seen by the infection and medical teams Medications You may continue your home medications. -We are adding a new antibiotic that you should take at home: Keflex 500mg (1 pill) every six hours, each day for the next seven days. You will start this tomorrow. Wound care -A visiting nurse should help you with your wound care. We recommend applying silver sulfadiazene cream to the affected wounds, with different applicators to avoid contamination. You should also apply the ammonium lactate to both of your legs to help moisturize. This should help with any dry skin. -You can also put telfa pads on the affected areas, as well as gauze wrapping. Doctor follow up -You will need to follow up with the following -Your primary care doctor - 1 week -Dr. Almeida, your vascular doctor - 1 week If you develop chest pain, or shortness of breath, please go to the hospital. We hope you feel better soon. Referrals: Mack Almeida MD [Primary Care Provider] - 1 Week Disposition: HOME This patient is new to me today: No Emergency Visit: No Critical Care patient: No - Discharge Referral Referred to [facility] Med [facility] No <Divine Sin - Last Filed: 04/21/18 15:21>
[2018-04-21 19:51] VITALS: BP 125/80; PULSE 79; TEMP 97.4
== END 2018-04-21 21:32 | disposition home or self-care (01) | DRG 593 ==
LOC: JER 16:54 → JERBED 04-16 01:09 → J7W 04-16 03:44
PROVIDERS: ADMIT Internal Medicine; ATTEND Internal Medicine
PROC: 0HBRXZZ Excision of Toe Nail, External Approach (ICD-10-PCS; principal; 2018-04-21)
PROC: 0HBRXZZ Excision of Toe Nail, External Approach (ICD-10-PCS; 2018-04-21)
PROC: 0HBRXZZ Excision of Toe Nail, External Approach (ICD-10-PCS; 2018-04-21)
PROC: 0HBRXZZ Excision of Toe Nail, External Approach (ICD-10-PCS; 2018-04-21)
PROC: 0HBRXZZ Excision of Toe Nail, External Approach (ICD-10-PCS; 2018-04-21)
PROC: 0HBRXZZ Excision of Toe Nail, External Approach (ICD-10-PCS; 2018-04-21)
PROC: 0HBRXZZ Excision of Toe Nail, External Approach (ICD-10-PCS; 2018-04-21)
PROC: 0HBRXZZ Excision of Toe Nail, External Approach (ICD-10-PCS; 2018-04-21)
PROC: 0HBRXZZ Excision of Toe Nail, External Approach (ICD-10-PCS; 2018-04-21)
PROC: 0HBRXZZ Excision of Toe Nail, External Approach (ICD-10-PCS; 2018-04-21)
DX: L97.828 Non-pressure chronic ulcer of other part of left lower leg with other specified severity (principal); L03.116 Cellulitis of left lower limb; N39.0 Urinary tract infection, site not specified; I10 Essential (primary) hypertension; E03.9 Hypothyroidism, unspecified; F03.90 Unspecified dementia, unspecified severity, without behavioral disturbance, psychotic disturbance, mood disturbance, and anxiety; I73.9 Peripheral vascular disease, unspecified; J45.909 Unspecified asthma, uncomplicated; Z88.0 Allergy status to penicillin; B35.1 Tinea unguium; L85.3 Xerosis cutis
CPT/HCPCS: 36415; 71045-TC-FY; 80048; 80053; 81003; 81015; 83605; 83735; 83880; 84100; 85025; 87040; 87070; 87086; 87186; 87205; 93005; 93010; 93970-TC; 97116-GP; 99284-25; J1644